=== PATIENT | male | born 1975 | race Caucasian/White ===

== ENCOUNTER → 2016-07-09 | Outpatient (CLI) | payer MEDICARE, OTHER ==
--- NOTE | 2016-07-10 06:54 | CONS ---
DATE OF CONSULTATION: CONSULTATION/NEW PATIENT EVALUATION A 40-year-old gentleman who has been evaluated in the sleep center for obstructive sleep apnea-hypopnea syndrome. HISTORY OF PRESENT ILLNESS/SLEEP-WAKE EVALUATION: Patient has been diagnosed with obstructive sleep apnea hypopnea syndrome about 4 years ago. Since that time, he is on treatment on CPAP. He continued using his CPAP equipment every night for the whole night. Recently according to the patient, he developed snoring while on treatment with CPAP and he feels more tired and sleepy during the day. SLEEP SCHEDULE: His sleep schedule is now from 10 p.m. to 7 a.m. on working days and from around 11 p.m. to 8 a.m. on weekends. FALLING ASLEEP: No problem with falling asleep. No TV in bedroom. DURING SLEEP: He usually sleeps on the back position. No history of hypnagogic hallucinations, sleep paralysis. DURING THE DAY/WAKE STATE: In the morning, patient wakes up tired. [place] Sleepiness Scale is although only 4. I checked patient's CPAP unit. CPAP pressure of 8 cm of water. Patient is using equipment 30 out of 30 nights for more than 4 hours. Subsequently 100% compliance with treatment. PAST MEDICAL HISTORY: Positive for depression, pulmonary embolism in 2014, back problems. MEDICATIONS: Clozaril, Lexapro, Eliquis, multivitamins. SOCIAL HISTORY: Positive for smoking for about 10 years 1 pack a day in the past; quit in 2010. Alcohol quit in 2006. FAMILY HISTORY: Sleep apnea, snoring, headaches, cancer, mental illness. REVIEW OF SYSTEMS: Snoring while on CPAP, some sleepiness during the day. No fevers. No double vision. No recent chest pain. No shortness of breath. No abdominal pain. No bleeding episodes. No blood in urine. No seizure episodes. PHYSICAL EXAMINATION: During physical exam, a 40-year-old gentleman without distress. VITAL SIGNS: BP 126/75, HR 90, RR 18, height 71, weight 298.8, BMI 41.5, temperature 98.4, oxygen saturation at room air 94%. HEENT: PERRLA, EOMI. Oropharynx extremely low position of soft palate, restriction of nasal breathing, very significant on the right side. NECK: Supple. No JVD. Thyroid is not palpable. LUNGS: Clear to percussion and to auscultation. Good air exchange. No wheezing or rhonchi. HEART: S1, S2 regular. No murmurs, gallops or rubs. ABDOMEN: Obese. EXTREMITIES: No clubbing or cyanosis. HACK SAW OPERATOR: Awake, alert, and oriented x3. Cranial nerves 2 to 7 intact. There is no fasciculation or atrophy noted. No focal deficits observed. IMPRESSION: 1. Obstructive sleep apnea-hypopnea syndrome. Recently patient developed snoring while on treatment with CPAP and feels sleepy in the morning after awakenings. 2. Obesity, body mass index 41.5. 3. History of pulmonary embolism in 2015. 4. Depression. 5. Back problems. PLAN: 1. We will repeat CPAP titration for re-evaluation of effective CPAP pressure at the present time, presently CPAP pressure is 8. 2. Aggressive losing weight program. 3. Sleep hygiene with regular time in bed for at least 8 hours. 4. No driving if feeling any sleepiness. 5. Continued treatment with CPAP every night for the whole night. Prescription for all necessary CPAP supplies. Thank you very much for allowing me to participate in the management of your patient. Sincerely, Lew Jordan MD, PhD, FAASM. Diplomat of [employer], Sleep Medicine Board by [employer] [facility] [place]
== END | disposition home or self-care (01) ==
LOC: SLEEP 15:47
PROVIDERS: ATTEND Internal Medicine
DX: G47.33 Obstructive sleep apnea (adult) (pediatric) (principal); E66.9 Obesity, unspecified; F32.9 Major depressive disorder, single episode, unspecified; Z68.41 Body mass index [BMI] 40.0-44.9, adult; Z86.711 Personal history of pulmonary embolism; Z79.01 Long term (current) use of anticoagulants
CPT/HCPCS: 99211

== ENCOUNTER 2018-02-23 21:43 | Inpatient (IN) | payer MEDICARE, OTHER ==
[2018-02-23] MEDS ORDERED: IPRATROPIUM-ALBUTEROL 3 ML NEB INHALATION STA (21:56)
[2018-02-23] MEDS ORDERED: DEXAMETHASONE SOD PHOSPHATE 10 MG/ML 1 ML VIAL IV STA (21:56)
--- NOTE | 2018-02-23 22:01 | ED ---
General Adult HPI - General Chief complaint: Shortness of Breath Stated complaint: Diff Breathing Time Seen by Provider: 02/23/18 21:50 Source: patient, RN notes reviewed, old records reviewed Mode of arrival: ambulatory Limitations: no limitations - History of Present Illness Initial comments: 42-year-old male history of asthma and pulmonary embolism presents with chief complaint of dyspnea. Patient states he had been out of his Eliquis, for the past 3 days. He did refill his prescription and took one dose prior to arrival. He does report that he's had worsening cough which is nonproductive. He also reports subjective fever and chills. Denies lower extremity swelling or calf tenderness. Denies nausea vomiting or diarrhea. He does report some central chest tightness. This is nonradiating. He is a current smoker. - Related Data Home Medications Medication Instructions Recorded Confirmed cloZAPine [Clozaril] 100 mg PO HS 04/29/14 02/23/18 Apixaban [Eliquis] 5 mg PO BID 02/23/18 02/23/18 Budesonide [Pulmicort Flexhaler] 2 puff INHALATION RT-BID 02/23/18 02/23/18 DULoxetine HCL [Cymbalta] 60 mg PO DAILY 02/23/18 02/23/18 Montelukast [Singulair] 10 mg PO HS 02/23/18 02/23/18 Allergies Allergy/AdvReac Type Severity Reaction Status Date / Time venlafaxine HCl Allergy Unknown Verified 02/23/18 21:50 [From Effexor] Review of Systems ROS Statement: Those systems with pertinent positive or pertinent negative responses have been documented in the HPI. ROS Other: All systems not noted in ROS Statement are negative. Past Medical History Past Medical History: Pulmonary Embolus (PE), Sleep Apnea/CPAP/BIPAP Additional Past Medical History / Comment(s): sleep apnea, bilateral PE History of Any Multi-Drug Resistant Organisms: None Reported Past Surgical History: No Surgical Hx Reported Past Anesthesia/Blood Transfusion Reactions: No Reported Reaction Past Psychological History: Schizophrenia Smoking Status: Light tobacco smoker Past Alcohol Use History: None Reported Past Drug Use History: Cocaine, IV Drug Use General Exam Limitations: no limitations General appearance: alert, in no apparent distress Head exam: Present: atraumatic, normocephalic Eye exam: Present: normal appearance, PERRL, EOMI ENT exam: Present: normal exam Neck exam: Present: normal inspection. Absent: tenderness Respiratory exam: Present: decreased breath sounds, prolonged expiratory. Absent: respiratory distress Cardiovascular Exam: Present: normal rhythm, tachycardia GI/Abdominal exam: Present: soft. Absent: distended, tenderness, guarding Extremities exam: Present: normal inspection, normal capillary refill. Absent: pedal edema Neurological exam: Present: alert, oriented X3, CN II-XII intact. Absent: motor sensory deficit Psychiatric exam: Present: normal affect, normal mood Skin exam: Present: warm, dry, intact. Absent: cyanosis, diaphoretic Course Vital Signs 02/23/18 02/23/18 02/23/18 21:46 22:35 22:43 Temperature 99.7 F H Pulse Rate 129 H 122 H 119 H Respiratory 18 14 16 Rate Blood Pressure 121/73 O2 Sat by Pulse 93 L Oximetry 02/23/18 23:00 Temperature Pulse Rate 114 H Respiratory 18 Rate Blood Pressure 115/53 O2 Sat by Pulse 97 Oximetry EKG Findings - EKG Comments: EKG Findings:: EKG: Sinus tachycardia, rate of 123, [place] interval 164, QRS duration 104, QTC 420, no ST segment elevation Medical Decision Making - Medical Decision Making 41-year-old male history of asthma and pulmonary embolism presents with cough and dyspnea. Patient is tachycardic, hyperpyrexic, tachypneic and hypoxic on initial evaluation. There is concern patient may have recurrent pulmonary embolism as he has been off of his anticoagulation for several days. CT angiography is obtained is negative for acute pulmonary and wasn't, there is adenopathy within the mediastinum as well as concern for pulmonary edema. This is also visualized on chest x-ray which is consistent with either interstitial pneumonia versus pulmonary edema. Laboratory testing reveals elevated white blood cell count 16.5, stable hemoglobin, troponin and BMP are negative. Official the x-ray findings are more consistent with pneumonia and infectious process rather than congestive heart failure. Patient has mild elevated lactic acid 3.0. He will be admitted for treatment of community-acquired pneumonia and reactive airway disease. Given the concern for pulmonary edema, echo will be obtained. IV hydration will be given however at a rate of 75 mL/h. patient started on ceftriaxone and azithromycin. He will be continued on IV steroids. - Lab Data Result diagrams: 02/23/18 22:14 02/23/18 22:14 Lab Results 02/23/18 02/23/18 02/23/18 Range/Units 22:14 22:14 22:14 WBC 16.5 H (3.8-10.6) k/uL RBC 5.55 (4.30-5.90) m/uL Hgb 15.4 (13.0-17.5) gm/dL Hct 47.3 (39.0-53.0) % MCV 85.1 (80.0-100.0) fL MCH 27.7 (25.0-35.0) pg MCHC 32.6 (31.0-37.0) g/dL RDW 15.0 (11.5-15.5) % Plt Count 290 (150-450) k/uL Neutrophils % (Manual) 88 % Band Neutrophils % 2 % Lymphocytes % (Manual) 7 % Monocytes % (Manual) 3 % Neutrophils # (Manual) 14.80 H (1.3-7.7) k/uL Lymphocytes # (Manual) 1.16 (1.0-4.8) k/uL Monocytes # (Manual) 0.50 (0-1.0) k/uL Nucleated RBCs 0 (0-0) /100 WBC Manual Slide Review Performed PT (9.0-12.0) sec INR (<1.2) APTT (22.0-30.0) sec Sodium 139 (137-145) mmol/L Potassium 4.3 (3.5-5.1) mmol/L Chloride 105 (98-107) mmol/L Carbon Dioxide 22 (22-30) mmol/L Anion Gap 12 mmol/L BUN 16 (9-20) mg/dL Creatinine 0.96 (0.66-1.25) mg/dL Est GFR (CKD-EPI)AfAm >90 (>60 ml/min/1.73 sqM) Est GFR (CKD-EPI)NonAf >90 (>60 ml/min/1.73 sqM) Glucose 146 H (74-99) mg/dL Plasma Lactic Acid Aneesh (0.7-2.0) mmol/L Calcium 9.7 (8.4-10.2) mg/dL Magnesium 1.9 (1.6-2.3) mg/dL Total Bilirubin 1.4 H (0.2-1.3) mg/dL AST 30 (17-59) U/L ALT 51 (21-72) U/L Alkaline Phosphatase 50 (38-126) U/L Total Creatine Kinase 146 (55-170) U/L CK-MB (CK-2) 0.3 (0.0-2.4) ng/mL CK-MB (CK-2) Rel Index 0.2 Troponin I <0.012 (0.000-0.034) ng/mL NT-Pro-B Natriuret Pep pg/mL Total Protein 7.4 (6.3-8.2) g/dL Albumin 4.3 (3.5-5.0) g/dL 02/23/18 02/23/18 02/23/18 Range/Units 22:14 22:14 22:14 WBC (3.8-10.6) k/uL RBC (4.30-5.90) m/uL Hgb (13.0-17.5) gm/dL Hct (39.0-53.0) % MCV (80.0-100.0) fL MCH (25.0-35.0) pg MCHC (31.0-37.0) g/dL RDW (11.5-15.5) % Plt Count (150-450) k/uL Neutrophils % (Manual) % Band Neutrophils % % Lymphocytes % (Manual) % Monocytes % (Manual) % Neutrophils # (Manual) (1.3-7.7) k/uL Lymphocytes # (Manual) (1.0-4.8) k/uL Monocytes # (Manual) (0-1.0) k/uL Nucleated RBCs (0-0) /100 WBC Manual Slide Review PT 11.2 (9.0-12.0) sec INR 1.2 H (<1.2) APTT 25.8 (22.0-30.0) sec Sodium (137-145) mmol/L Potassium (3.5-5.1) mmol/L Chloride (98-107) mmol/L Carbon Dioxide (22-30) mmol/L Anion Gap mmol/L BUN (9-20) mg/dL Creatinine (0.66-1.25) mg/dL Est GFR (CKD-EPI)AfAm (>60 ml/min/1.73 sqM) Est GFR (CKD-EPI)NonAf (>60 ml/min/1.73 sqM) Glucose (74-99) mg/dL Plasma Lactic Acid Aneesh 3.0 H* (0.7-2.0) mmol/L Calcium (8.4-10.2) mg/dL Magnesium (1.6-2.3) mg/dL Total Bilirubin (0.2-1.3) mg/dL AST (17-59) U/L ALT (21-72) U/L Alkaline Phosphatase (38-126) U/L Total Creatine Kinase (55-170) U/L CK-MB (CK-2) (0.0-2.4) ng/mL CK-MB (CK-2) Rel Index Troponin I (0.000-0.034) ng/mL NT-Pro-B Natriuret Pep <11 pg/mL Total Protein (6.3-8.2) g/dL Albumin (3.5-5.0) g/dL Disposition Clinical Impression: Community acquired pneumonia, Asthma with exacerbation Disposition: ADMITTED IP TO THIS [facility] Condition: Stable Is patient prescribed a controlled substance at d/c from ED?: No Referrals: Moise Christensen MD [Primary Care Provider] - 1-2 days Decision to Admit Reason: Admit from EC Decision Date: 02/23/18 Decision Time: 23:44
[2018-02-23 22:31] LABS: HCT 47.3 % (39.0-53.0); HGB 15.4 gm/dL (13.0-17.5); MCH 27.7 pg (25.0-35.0); MCHC 32.6 g/dL (31.0-37.0); MCV 85.1 fL (80.0-100.0); Mean Platelet Volume 6.3; Platelet Count 290 k/uL (150-450); RBC 5.55 m/uL (4.30-5.90); WBC 16.5 k/uL (3.8-10.6)
[2018-02-23 22:43] LABS: ALT 51 U/L (21-72); AST 30 U/L (17-59); Albumin 4.3 g/dL (3.5-5.0); Alkaline Phosphatase 50 U/L (38-126); Anion Gap 12 mmol/L; Blood Urea Nitrogen 16 mg/dL (9-20); Calcium 9.7 mg/dL (8.4-10.2); Carbon Dioxide 22 mmol/L (22-30); Chloride 105 mmol/L (98-107); Glucose 146 mg/dL (74-99); INR 1.2 (<1.2); Magnesium 1.9 mg/dL (1.6-2.3); Partial Thromboplastin Time 25.8 sec (22.0-30.0); Potassium 4.3 mmol/L (3.5-5.1); Prothrombin Time 11.2 sec (9.0-12.0); Sodium 139 mmol/L (137-145); Total Bilirubin 1.4 mg/dL (0.2-1.3); Total Protein 7.4 g/dL (6.3-8.2)
[2018-02-23 22:44] LABS: Creatine Kinase 146 U/L (55-170)
--- NOTE | 2018-02-23 22:49 | XR ---
EXAMINATION TYPE: XR chest 1V portable DATE OF EXAM: 02/23/2018 COMPARISON: 10/03/2014 HISTORY: Difficulty breathing TECHNIQUE: Single frontal view of the chest is obtained. FINDINGS: Heart and mediastinum are normal. There is coarsening of the lung markings. There is no pl eural effusion. Bony thorax is intact. There are chest leads. IMPRESSION: There is new pulmonary interstitial edema compared to old exam. This could be acute inte rstitial pneumonia or congestive heart failure.
[2018-02-23 22:52] LABS: Band Neutrophils % 2 %; Lymphocytes # (M) 1.16 k/uL (1.0-4.8); Neutrophils % (M) 88 %; Nucleated Red Blood Cells 0 /100 WBC (0-0); Total Cells Counted 100
[2018-02-23 22:57] LABS: Creatine Kinase MB 0.3 ng/mL (0.0-2.4); Troponin I <0.012 ng/mL (0.000-0.034)
--- NOTE | 2018-02-23 23:08 | CT ---
EXAMINATION TYPE: CT angio chest DATE OF EXAM: 02/23/2018 11:00 PM COMPARISON: 11/22/2014 HISTORY: SOB, hx of bilateral PE CT DLP: 836.7 mGycm Automated exposure control for dose reduction was used. CONTRAST: CTA scan of the thorax is performed with IV Contrast, patient injected with 77 mL of Isovue 370, pulm onary embolism protocol. There are 3-D post processed images.. FINDINGS: There is diffuse pulmonary interstitial and alveolar edema. There are enlarged mediastinal and paratr acheal lymph nodes that measure up to 2 cm. Heart size is normal. There is no pericardial effusion. I see no filling defects in the pulmonary arteries. Thoracic aorta is intact without evidence of aneu rysm or dissection. There is no pleural effusion. Upper abdominal soft tissues are unremarkable. The bony thorax is intact. IMPRESSION: NO EVIDENCE OF PULMONARY EMBOLISM. THERE IS MEDIASTINAL ADENOPATHY THAT IS INCREASED SLIGHTLY COMPARE D TO OLD CT SCAN. THERE IS MODERATE DIFFUSE PULMONARY EDEMA. THIS IS NEW COMPARED TO OLD EXAM.
[2018-02-23] MEDS ORDERED: AZITHROMYCIN 500 MG in SODIUM CHLORIDE 0.9% 250 ML IVPB STA (23:10)
[2018-02-23] MEDS ORDERED: SODIUM CHLORIDE 0.9% 500 ML 500 ML IV ONE (23:14)
[2018-02-23] MEDS ORDERED: IPRATROPIUM-ALBUTEROL 3 ML NEB INHALATION PRN (23:35)
[2018-02-24] MEDS: SODIUM CHLORIDE 0.9% 1,000 ML IV SCH ×3 (00:01→23:28)
[2018-02-24] MEDS: methylPREDNISolone SOD SUCCI 125 MG/2 ML VIAL IV SCH ×5 (01:41→23:28)
[2018-02-24] MEDS: cloZAPine 100 MG TAB PO SCH ×2 (02:39→22:40)
[2018-02-24] MEDS: IPRATROPIUM-ALBUTEROL 3 ML NEB INHALATION SCH ×4 (08:23→20:42)
[2018-02-24] MEDS: DULoxetine HCL 60 MG CAPSULE.DR PO SCH (08:48)
[2018-02-24] MEDS: APIXABAN 5 MG TAB PO SCH ×2 (08:48→20:11)
[2018-02-24] MEDS: FUROSEMIDE 10 MG/ML 4 ML VIAL IV SCH ×2 (15:53→20:11)
[2018-02-24] MEDS: POTASSIUM CHLORIDE ER 20 MEQ TAB.ER PO SCH (15:54)
[2018-02-24] MEDS: NICOTINE 14MG/24HR PATCH TRANSDERM SCH (15:54)
--- NOTE | 2018-02-24 19:21 | P.HPIM ---
History of Present Illness H&P Date: 02/24/18 Chief Complaint: Shortness of breath and fever cough This is a 42-year-old pleasant gentleman patient of Dr. Christensen and Dr. Lanre Perkins. He came in with shortness of breath of approximately 1-2 days duration, dry cough, fever and chills, patient has a nebulizer which is not helping, patient sees Dr. Lanre Perkins for her pulmonary embolism and asthma for which she is not on Xolair shots. Patient has been out of his Eliquis for the past 3 days , patient denies any hemoptysis or hypoxemia, and was subsequently seen emergency room. In the emergency room, imaging studies shows pneumonia with infectious processes rather than CHF that was noted, mild lactic acidosis, treatment would be provided for Commit acquired pneumonia IV form, IV steroids, and nebulized treatments. Consult with Dr. Lanre Perkins, Nocardia gram to be done for pulmonary edema, Lasix to be given, Rocephin and Zithromax Review of Systems Constitutional: Reports as per HPI, Reports anorexia, Reports chills, Denies chronic headaches, Denies chronic pain, Denies daytime sleepiness, Denies fatigue, Denies fever, Denies lethargy, Denies malaise, Denies night sweats, Denies poor appetite, Denies sweats, Denies weakness, Denies weight gain, Denies weight loss Ears, nose, mouth and throat: Reports as per HPI Cardiovascular: Reports as per HPI, Denies chest pain, Denies claudication, Denies decreased exercise tolerance, Denies dyspnea on exertion, Denies edema, Denies high blood pressure, Denies irregular heart beat, Denies leg edema, Denies lightheadedness, Denies orthopnea, Denies palpitations, Denies paroxysmal nocturnal dyspnea, Denies phlebitis, Denies rapid heart beat, Denies shortness of breath, Denies syncope Respiratory: Reports as per HPI, Reports cough, Reports dyspnea, Reports sleep apnea Gastrointestinal: Reports as per HPI, Denies abdominal pain, Denies belching, Denies bloating, Denies BRBPR, Denies change in bowel habits, Denies coffee ground emesis, Denies constipation, Denies diarrhea, Denies dyspepsia, Denies early satiety, Denies excessive gas, Denies heartburn, Denies hematemesis, Denies hematochezia, Denies indigestion, Denies jaundice, Denies lactose intolerance, Denies loss of appetite, Denies melena, Denies nausea, Denies vomiting Genitourinary: Reports as per HPI, Denies decreased libido, Denies difficulties fathering child, Denies discharge, Denies dysuria, Denies erectile dysfunction, Denies flank pain, Denies genital pain, Denies genital sores, Denies hematuria, Denies impotence, Denies incontinence, Denies kidney stones, Denies nocturia, Denies polyuria, Denies testicular lump, Denies testicular pain, Denies urinary frequency, Denies urinary hesitancy, Denies urinary retention Musculoskeletal: Reports as per HPI, Denies arm numbness/tingling, Denies atrophy, Denies fractures, Denies frequent falls, Denies gait dysfunction, Denies hot joints, Denies leg numbness/tingling, Denies limitation of motion, Denies loss of height, Denies low back pain, Denies morning stiffness, Denies muscle cramps, Denies muscle weakness, Denies myalgias, Denies neck pain, Denies neck stiffness, Denies prior amputations, Denies redness of joints, Denies shooting arm pain, Denies shooting leg pain Integumentary: Reports as per HPI, Denies acne, Denies boils, Denies brittle nails, Denies change in hair/nails, Denies color changes, Denies darkening of skin, Denies depigmentation, Denies dryness, Denies foot/leg ulcers, Denies growths, Denies hirsutism, Denies lesions, Denies onychomycosis, Denies pruritus , Denies rash, Denies sores, Denies striae, Denies unusual bruising, Denies wounds Neurological: Reports as per HPI, Denies aphasia, Denies ataxia, Denies balance difficulties, Denies burning pain, Denies change in mentation, Denies change in smell/taste, Denies change in speech, Denies confusion, Denies convulsions, Denies double vision, Denies gait dysfunction, Denies head injury, Denies headaches, Denies hearing difficulties, Denies lack of coordination, Denies loss of vision, Denies memory loss, Denies migraines, Denies motor disturbance, Denies numbness, Denies paralysis, Denies paresthesias, Denies seizures, Denies sensory deficit, Denies spasticity, Denies syncope, Denies tic, Denies tingling , Denies transient paralysis, Denies tremors, Denies vertigo, Denies weakness, Denies visual changes Psychiatric: Reports as per HPI, Denies anhedonia, Denies anxiety, Denies anxiety attacks, Denies change in appetite, Denies change in libido, Denies change in sleep habits, Denies confusion, Denies depression, Denies difficulty concentrating, Denies disorientation, Denies hallucinations, Denies hopelessness , Denies hypersomnia, Denies insomnia, Denies irritability, Denies memory loss, Denies mood swings, Denies paranoia, Denies sadness/tearfulness, Denies sleep disturbances, Denies suicidal ideation Endocrine: Reports as per HPI, Denies cold intolerance, Denies deepening of the voice, Denies excessive sweating, Denies excessive thirst, Denies fatigue, Denies flushing, Denies heat intolerance, Denies high blood sugars, Denies increase in ring/shoe/hat size, Denies low blood sugars, Denies nocturia, Denies palpitations, Denies polydipsia, Denies polyphagia, Denies polyuria, Denies proptosis, Denies recent glucocorticoid use, Denies thyroid mass, Denies weight change Hematologic/Lymphatic: Reports as per HPI, Denies easy bleeding, Denies easy bruising, Denies lymphadenopathy, Denies lymphedema, Denies thrombophilia Allergic/Immunologic: Reports as per HPI, Reports wheezing Past Medical History Past Medical History: Pulmonary Embolus (PE), Sleep Apnea/CPAP/BIPAP Additional Past Medical History / Comment(s): Sleep apnea- CPAP, bilateral PE 2015 and takes Eliquid for this. History of Any Multi-Drug Resistant Organisms: None Reported Past Surgical History: No Surgical Hx Reported Past Anesthesia/Blood Transfusion Reactions: No Reported Reaction Past Psychological History: Schizophrenia Smoking Status: Current some day smoker Past Alcohol Use History: None Reported Additional Past Alcohol Use History / Comment(s): Smoke cigars occassionally and vape daily. Past Drug Use History: Cocaine, IV Drug Use Additional Drug Use History / Comment(s): Patient states former IV drug use 12 years ago. - Past Family History Mother Family Medical History: No Reported History Father History Unknown: Yes Family Medical History: Cancer Additional Family Medical History / Comment(s): History of skin cancer. Sister(s) Family Medical History: No Reported History Medications and Allergies Home Medications Medication Instructions Recorded Confirmed Type cloZAPine [Clozaril] 100 mg PO HS 04/29/14 02/24/18 History Apixaban [Eliquis] 5 mg PO BID 02/23/18 02/24/18 History Budesonide [Pulmicort Flexhaler] 2 puff INHALATION RT-BID 02/23/18 02/24/18 History DULoxetine HCL [Cymbalta] 60 mg PO DAILY 02/23/18 02/24/18 History Montelukast [Singulair] 10 mg PO HS 02/23/18 02/24/18 History Allergies Allergy/AdvReac Type Severity Reaction Status Date / Time venlafaxine HCl Allergy Nausea & Verified 02/24/18 00:58 [From Effexor] Vomiting Physical Exam Vitals: Vital Signs Temp Pulse Pulse Resp BP BP Pulse Ox 02/24/18 12:40 97.5 F L 93 17 136/72 94 L 02/24/18 11:28 92 02/24/18 11:17 88 02/24/18 05:34 98.2 F 83 16 122/69 92 L 02/24/18 00:25 97.9 F 110 H 18 115/67 95 02/24/18 00:05 98.0 F 110 H 18 109/79 96 02/23/18 23:00 114 H 18 115/53 97 02/23/18 22:43 119 H 16 02/23/18 22:35 122 H 14 02/23/18 21:46 99.7 F H 129 H 18 121/73 93 L Intake and Output 02/23/18 02/24/18 02/24/18 22:59 06:59 14:59 Intake Total 1530 600 Balance 1530 600 Intake: IV 600 Sodium Chloride 0.9% 1, 600 000 ml @ 75 mls/hr IV . [id number] [facility] Rx#:[id number] Intake, IV Titration 450 Amount Sodium Chloride 0.9% 1, 450 000 ml @ 75 mls/hr IV . [id number] [facility] Rx#:[id number] Oral 1080 Other: Voiding Method Toilet Toilet # Voids 2 Weight 132.903 kg - Constitutional General appearance: cooperative, no acute distress, obese - EENT Eyes: EOMI, PERRLA, dentition normal, normal appearance ENT: NA/AT, normal oropharynx - Neck Neck: no lymphadenopathy, normal ROM, no other, no rigidity, no stridor, no thyromegaly - Respiratory Respiratory: bilateral: CTA, negative: diminished, dullness - Cardiovascular Rhythm: regular Heart sounds: normal: S1, S2 Abnormal Heart Sounds: no systolic murmur, no diastolic murmur, no rub, no S3 Gallop, no S4 Gallop, no click, no other - Gastrointestinal General gastrointestinal: no absent bowel sounds, no decreased bowel sounds, no distended, no hepatomegaly, no hyperactive bowel sounds, normal bowel sounds, no organomegaly, no rigid, no scaphoid, soft, no splenomegaly, no tenderness, no umbilical hernia, no ventral hernia - Integumentary Integumentary: no calor, no cellulitis, no cyanotic, no decreased turgor, no flushed, no jaundiced, normal, normal turgor, no pale, no rash, no ulcer - Neurologic Neurologic: CNII-XII intact (CPAP at bedside) - Musculoskeletal Musculoskeletal: gait normal, strength equal bilaterally - Psychiatric Psychiatric: A&O x's 3, appropriate affect, intact judgment & insight Results CBC & Chem 7: 02/23/18 22:14 02/23/18 22:14 Labs: Abnormal Lab Results - Last 24 Hours (Table) 02/23/18 02/23/18 02/23/18 Range/Units 22:14 22:14 22:14 WBC 16.5 H (3.8-10.6) k/uL Neutrophils # (Manual) 14.80 H (1.3-7.7) k/uL INR 1.2 H (<1.2) Glucose 146 H (74-99) mg/dL Plasma Lactic Acid Aneesh (0.7-2.0) mmol/L Total Bilirubin 1.4 H (0.2-1.3) mg/dL 02/23/18 02/24/18 Range/Units 22:14 03:13 WBC (3.8-10.6) k/uL Neutrophils # (Manual) (1.3-7.7) k/uL INR (<1.2) Glucose (74-99) mg/dL Plasma Lactic Acid Aneesh 3.0 H* 2.1 H* (0.7-2.0) mmol/L Total Bilirubin (0.2-1.3) mg/dL Laboratory Results WBC 16.5 k/uL (3.8-10.6) H 02/23/18 22:14 RBC 5.55 m/uL (4.30-5.90) 02/23/18 22:14 Hgb 15.4 gm/dL (13.0-17.5) 02/23/18 22:14 Hct 47.3 % (39.0-53.0) 02/23/18 22:14 MCV 85.1 fL (80.0-100.0) 02/23/18 22:14 MCH 27.7 pg (25.0-35.0) 02/23/18 22:14 MCHC 32.6 g/dL (31.0-37.0) 02/23/18 22:14 RDW 15.0 % (11.5-15.5) 02/23/18 22:14 Plt Count 290 k/uL (150-450) 02/23/18 22:14 Neutrophils % (Manual) 88 % 02/23/18 22:14 Band Neutrophils % 2 % 02/23/18 22:14 Lymphocytes % (Manual) 7 % 02/23/18 22:14 Monocytes % (Manual) 3 % 02/23/18 22:14 Neutrophils # (Manual) 14.80 k/uL (1.3-7.7) H 02/23/18 22:14 Lymphocytes # (Manual) 1.16 k/uL (1.0-4.8) 02/23/18 22:14 Monocytes # (Manual) 0.50 k/uL (0-1.0) 02/23/18 22:14 Nucleated RBCs 0 /100 WBC (0-0) 02/23/18 22:14 Manual Slide Review Performed 02/23/18 22:14 PT 11.2 sec (9.0-12.0) 02/23/18 22:14 INR 1.2 (<1.2) H 02/23/18 22:14 APTT 25.8 sec (22.0-30.0) 11/21/18 22:14 Sodium 139 mmol/L (137-145) 02/23/18 22:14 Potassium 4.3 mmol/L (3.5-5.1) 02/23/18 22:14 Chloride 105 mmol/L (98-107) 02/23/18 22:14 Carbon Dioxide 22 mmol/L (22-30) 02/23/18 22:14 Anion Gap 12 mmol/L 02/23/18 22:14 BUN 16 mg/dL (9-20) 02/23/18 22:14 Creatinine 0.96 mg/dL (0.66-1.25) 02/23/18 22:14 Est GFR (CKD-EPI)AfAm >90 (>60 ml/min/1.73 sqM) 02/23/18 22:14 Est GFR (CKD-EPI)NonAf >90 (>60 ml/min/1.73 sqM) 02/23/18 22:14 Glucose 146 mg/dL (74-99) H 02/23/18 22:14 Lactic Ac Sepsis Rflx Y 02/23/18 23:14 Plasma Lactic Acid Aneesh 2.1 mmol/L (0.7-2.0) H* 02/24/18 03:13 Calcium 9.7 mg/dL (8.4-10.2) 02/23/18 22:14 Magnesium 1.9 mg/dL (1.6-2.3) 02/23/18 22:14 Total Bilirubin 1.4 mg/dL (0.2-1.3) H 02/23/18 22:14 AST 30 U/L (17-59) 02/23/18 22:14 ALT 51 U/L (21-72) 02/23/18 22:14 Alkaline Phosphatase 50 U/L (38-126) 02/23/18 22:14 Total Creatine Kinase 146 U/L (55-170) 02/23/18 22:14 CK-MB (CK-2) 0.3 ng/mL (0.0-2.4) 02/23/18 22:14 CK-MB (CK-2) Rel Index 0.2 02/23/18 22:14 Troponin I <0.012 ng/mL (0.000-0.034) 02/23/18 22:14 NT-Pro-B Natriuret Pep <11 pg/mL 02/23/18 22:14 Total Protein 7.4 g/dL (6.3-8.2) 02/23/18 22:14 Albumin 4.3 g/dL (3.5-5.0) 02/23/18 22:14 Influenza Type A RNA Not Detected (Not Detectd) 02/24/18 00:07 Influenza Type B (PCR) Not Detected (Not Detectd) 02/24/18 00:07 Thrombosis Risk Factor Assmnt - DVT/VTE Prophylaxis DVT/VTE Prophylaxis: Pharmacologic Prophylaxis ordered - Choose All That Apply Each Factor Represents 1 point: Age 41-60 years, Obesity (BMI >25) Each Risk Factor Represents 3 Points: History of DVT/PE Other congenital or acquired thrombophilia - If yes, enter type in comment: No Thrombosis Risk Factor Assessment Total Risk Factor Score: 5 Thrombosis Risk Factor Assessment Level: High Risk Assessment and Plan Plan: 1. Coreg acquired pneumonia, asthma exacerbation. Presenting with dyspnea on exertion, known history of pulmonary emboli, with chronic anticoagulation. Patient will be treated with asked way using Rocephin and Zithromax, IV steroids for the asthma, nebulized albuterol 8 event. Patient most likely would not be able to provide any sputum cultures at this time secondary to the dry cough, monitor for any decompensation, 2. Asthma exacerbation, not requiring any Xolair from pulmonary, albuterol and 8 event, Singulair, Pulmicort 0.5 mg twice a day nebulized solution 3. Obstructive sleep apnea on CPAP machine for which patient is using at bedside 4. Acute pulmonary edema, Lasix 40 mg every 12 hours, echocardiogram to be performed, potassium 10 MG Q [employer] 5 Long-term anticoagulation using Eliquis 6 History of recurrent pulmonary emboli for which she is advised to comply with Eliquis 5 mg twice a day 7 Lactic acidosis which is improving, most likely secondary to pneumonia 8 Mood disorder on Cymbalta Clozaril no changes made 9 Current tobacco use, patient was offered nicotine patches 14 g which was initiated DVT prophylaxis next GI prophylaxis Discharge planning home in approximately 24-48 hours
[2018-02-24] MEDS: FAMOTIDINE 20 MG TAB PO SCH (20:11)
[2018-02-24] MEDS: MONTELUKAST 10 MG TAB PO SCH (20:11)
[2018-02-24] MEDS: BUDESONIDE 0.5 MG/2 ML NEBU INHALATION SCH (20:41)
[2018-02-24] MEDS ORDERED: AZITHROMYCIN 500 MG in SODIUM CHLORIDE 0.9% 250 ML IVPB SCH (23:00)
[2018-02-25] MEDS: methylPREDNISolone SOD SUCCI 125 MG/2 ML VIAL IV SCH ×3 (05:09→18:01)
[2018-02-25] MEDS: IPRATROPIUM-ALBUTEROL 3 ML NEB INHALATION SCH ×4 (08:14→19:46)
[2018-02-25] MEDS: BUDESONIDE 0.5 MG/2 ML NEBU INHALATION SCH ×2 (08:14→19:46)
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
[2018-02-25] MEDS: FUROSEMIDE 10 MG/ML 4 ML VIAL IV SCH (09:44)
[2018-02-25] MEDS: APIXABAN 5 MG TAB PO SCH ×2 (09:44→20:55)
[2018-02-25] MEDS: FAMOTIDINE 20 MG TAB PO SCH ×2 (09:44→20:55)
[2018-02-25] MEDS: DULoxetine HCL 60 MG CAPSULE.DR PO SCH (09:44)
[2018-02-25] MEDS: POTASSIUM CHLORIDE ER 20 MEQ TAB.ER PO SCH (09:45)
[2018-02-25] MEDS: NICOTINE 14MG/24HR PATCH TRANSDERM SCH (09:45)
[2018-02-25 12:26] LABS: Glucose,Whole Blood 236 mg/dL (75-99)
[2018-02-25] MEDS: INSULIN ASPART 100 UNIT/ML 1 ML 10 ML VIAL SQ SCH ×3 (12:37→20:55)
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
--- NOTE | 2018-02-25 13:46 | CDI ---
Last Revision, March 2017 Documentation Clarification Form Date: 02/25/18 From: Rosetta Knowles RN Admit Date: 02/23/2018 11:44:00 PM Patient Name: Rolando Canas Visit Number: [id number] ATTENTION: The Clinical Documentation Specialists (CDI) and [facility] Coding Staff appreciate your assistance in clarifying documentation. Please respond to the clarification below the line at the bottom and electronically sign. The CDI & [facility] Coding staff will review the response and follow-up if needed. Please note: Queries are made part of the Legal Health Record. If you have any questions, please contact the author of this message via ITS. Sujit Worthington MD, Asthma is documented in the Ed note as a history, and in your Consult note dated 02/24. Patient presented to ED with shortness of breath. Patient admitted for community acquired pneumonia and asthma with exacerbation Patient history/risk factors: PE, apnea, schizophrenia, smoker, cocaine and IV drug use Clinical Indicators: ED note patients reports some central chest tightness. H&P states "asthma exacerbation" Consult 02/25: Faint wheezing on forced expiration. CXR: new pulmonary interstitial edema, could be acute interstitial pneumonia CHEST CTA: moderate diffuse pulmonary edema Vital Signs on admission: T 99.7, P 129, R 18, 121/73, 93% RA Treatment: Medication: Duoneb, Pulmicort, Solu-Medrol, Singulair In your professional opinion, can you please further specify the following, if known? With: Status asthmaticus Chronic obstructive bronchitis Other, please specify Unable to determine Severity: Mild intermittent Mild persistent Moderate persistent Other, please specify Unable to determine Form or Type: Cough variant Exercise induced bronchospasm Extrinsic allergic Late-onset Mixed Other, please specify Unable to determine MTDD
--- NOTE | 2018-02-25 14:11 | CDI ---
Last Revision, March 2017 Documentation Clarification Form Date: 02/25/18 From: Rosetta Knowles RN Admit Date: 02/23/2018 11:44:00 PM Patient Name: Rolando Canas Visit Number: [id number] ATTENTION: The Clinical Documentation Specialists (CDI) and [facility] Coding Staff appreciate your assistance in clarifying documentation. Please respond to the clarification below the line at the bottom and electronically sign. The CDI & [facility] Coding staff will review the response and follow-up if needed. Please note: Queries are made part of the Legal Health Record. If you have any questions, please contact the author of this message via ITS. Salima Sal MD, Can you please render your opinion on the following documentation? Patient presented with dyspnea, fever and chills. Patient was admitted with Community acquired pneumonia, Asthma with exacerbation. History/Risk Factors: PE, apnea, smoker, cocaine and IV drug use Clinical Indicators: WBC on admission: 16.5 Lactic acid on admission: 3.0. On 02/24: 2.1 Blood cultures: Preliminary no growth after 24 hours Vitals signs on admission: T 99.7, P 129, R 18, 121/73, 93% RA ED notes states Patient was tachycardic, hyperpyrexic, tachypneic and hypoxic on initial evaluation. Treatment: ID Consult: Pulmonary Antibiotics: Azithromycin IVPB, Ceftriaxone IVPB IV Bolus: .9 - 500ml x1 In your professional opinion, please clarify if these findings signify one of the following conditions, whether the condition is POA, and cause, if known: Condition Sepsis ruled in Sepsis ruled out SIRS, without underlying infectious process Other, please specify Unable to determine Present on Admission: Yes No Identify the (suspected) organism SIRS Criteria..2 or more of the following may indicate SIRS: Temperature < 96.8F (36C) or > 101.0F (38.3C) Heart Rate > 90 bpm Respiratory Rate > 20 breaths/min or PaCO2 < 32 mmHg White Blood Cell Count > 12,000 or < 4,000 cells/mm3 or > 10% bands Lactate >2.0 mmol/L (>4.0 is equivalent to septic shock) MTDD
--- NOTE | 2018-02-25 15:20 | P.PN ---
Subjective Progress Note Date: 02/25/18 This is a 42-year-old pleasant gentleman patient of Dr. Christensen and Dr. Lanre Perkins. He came in with shortness of breath of approximately 1-2 days duration, dry cough, fever and chills, patient has a nebulizer which is not helping, patient sees Dr. Lanre Perkins for her pulmonary embolism and asthma for which she is not on Xolair shots. Patient has been out of his Eliquis for the past 3 days , patient denies any hemoptysis or hypoxemia, and was subsequently seen emergency room. In the emergency room, imaging studies shows pneumonia with infectious processes rather than CHF that was noted, mild lactic acidosis, treatment would be provided for Commit acquired pneumonia IV form, IV steroids, and nebulized treatments. Consult with Dr. Lanre Perkins, Nocardia gram to be done for pulmonary edema, Lasix to be given, Rocephin and Zithromax 02/25: Patient continues to have some shortness of breath but a little bit better from yesterday. He has a tight cough. He continues to have some wheezing. Solu-Medrol is at 60 mg every 6 hours and will be maintained. IV fluids will be discontinued and IV Lasix will be switched to oral. Anticipate discharge in the next 24-48 hours pending progress. Patient is followed by Dr. SUKHDEV Perkins. He is afebrile, pulse ox is 93% on room air, heart rate running 90s to low 100s. Plan to start patient on NovoLog scale. Review Of Systems: Constitutional: No fever, no chills, no night sweats. No weight change. No weakness, fatigue or lethargy. No daytime sleepiness. EENT: No headache. No blurred vision or double vision, no loss of vision. No loss of Hearing, no ringing in the ears, no dizziness. No nasal drainage or congestion. No epistaxis. No sore throat. Lungs: Complains of shortness of breath, complains of cough, no sputum production. Complains of wheezing. Cardiovascular: No chest pain, no lower extremity edema. No palpitations. No paroxysmal nocturnal dyspnea. No orthopnea. No lightheadedness or dizziness. No syncopal episodes. Abdominal: No abdominal pain. No nausea, vomiting. No diarrhea. No constipation. No bloody or tarry stools.. No loss of appetite. Genitourinary: No dysuria, increased frequency, urgency. No urinary retention. Musculoskeletal: No myalgias. No muscle weakness, no gait dysfunction, no frequent falls. No back pain. No neck pain. Integumentary: No wounds, no lesions. No rash or pruritus. No unusual bruising. No change in hair or nails. Neurologic: No aphasia. No facial droop. No change in mentation. No head injury. No headache. No paralysis. No paresthesia. Psychiatric: No depression. No anxiety. No mood swings. Endocrine: No abnormal blood sugars. No weight change. No excessive sweating or thirst. No cold intolerance. Objective - Vital Signs Vital signs: Vital Signs Temp 97.6 F 02/25/18 05:00 Pulse 92 02/25/18 08:29 Resp 16 02/25/18 05:00 BP 109/58 02/25/18 05:00 Pulse Ox 94 L 02/25/18 05:00 Intake & Output 02/24/18 02/25/18 02/25/18 18:59 06:59 18:59 Intake Total 600 2240 Balance 600 2240 Intake: IV 600 350 Sodium Chloride 0.9% 1, 600 350 000 ml @ 75 mls/hr IV . [id number] RODRIGO Rx#:[id number] Intake, IV Titration 300 Amount Azithromycin 500 mg In 250 Sodium Chloride 0.9% 250 ml @ 250 mls/hr IVPB ONCE STA Rx#:[id number] cefTRIAXone 1,000 mg In 50 Sodium Chloride 0.9% 50 ml @ 100 mls/hr IVPB Q24H RODRIGO Rx#:[id number] Oral 1590 Other: Voiding Method Toilet Toilet # Voids 2 - Exam General appearance: cooperative, no acute distress, obese - EENT Eyes: EOMI, PERRLA, dentition normal, normal appearance ENT: NA/AT, normal oropharynx - Neck Neck: no lymphadenopathy, normal ROM, no other, no rigidity, no stridor, no thyromegaly - Respiratory Respiratory: bilateral: CTA, negative: diminished, dullness, prolonged expiration. - Cardiovascular Rhythm: regular Heart sounds: normal: S1, S2 Abnormal Heart Sounds: no systolic murmur, no diastolic murmur, no rub, no S3 Gallop, no S4 Gallop, no click, no other - Gastrointestinal General gastrointestinal: no absent bowel sounds, no decreased bowel sounds, no distended, no hepatomegaly, no hyperactive bowel sounds, normal bowel sounds, no organomegaly, no rigid, no scaphoid, soft, no splenomegaly, no tenderness, no umbilical hernia, no ventral hernia - Integumentary Integumentary: no calor, no cellulitis, no cyanotic, no decreased turgor, no flushed, no jaundiced, normal, normal turgor, no pale, no rash, no ulcer - Neurologic Neurologic: CNII-XII intact (CPAP at bedside) - Musculoskeletal Musculoskeletal: gait normal, strength equal bilaterally - Psychiatric Psychiatric: A&O x's 3, appropriate affect, intact judgment & insight - Labs CBC & Chem 7: 02/23/18 22:14 02/23/18 22:14 Labs: Microbiology - Last 24 Hours (Table) 02/23/18 22:14 Blood Culture - Preliminary Blood No Growth after 24 hours Assessment and Plan Plan: 1. Community acquired pneumonia possibly from inhalation injury from exposure to gases from fire extinguisher and confined space, possible hypersensitivity pneumonitis or secondary bacterial infection with asthma exacerbation and presenting with SEPSIS. Consult with Dr. SUKHDEV Perkins appreciated. Continue DuoNeb treatments 4 times daily every 4 hours as needed, azithromycin, ceftriaxone, Solu-Medrol 60 mg IV every 6 hours, Singulair 10 mg at bedtime. 2. Moderate persistent asthma, not requiring Xolair from pulmonary. Continue treatment as in #1 3. Obstructive sleep apnea on CPAP machine for which patient is using at bedside 4. Acute pulmonary edema, IV Lasix changed to oral Lasix 40 mg daily, echocardiogram to be performed. 5. History of pulmonary embolism on Long-term anticoagulation using Eliquis 6. Lactic acidosis secondary to pneumonia, status post fluid resuscitation 7. Recurrent depression. Continue Cymbalta and Clozaril. 8. Current tobacco use, patient was offered nicotine patches 14 g which was initiated. 9. Hyperglycemia most likely secondary to steroids. NovoLog scale before meals and at bedtime. Hemoglobin A1c ordered DVT prophylaxis on eliquis GI prophylaxis on Pepcid Discharge planning home in approximately 24-48 hours Impression and plan of care have been directed as dictated by the signing physician. Sarah Martinez nurse practitioner acting as scribe for signing physician.
[2018-02-25 16:46] LABS: Glucose,Whole Blood 250 mg/dL (75-99)
--- NOTE | 2018-02-25 17:04 | ECHOF ---
Referral Reason:LYNN MEASUREMENTS -------- HEIGHT: 180.3 cm WEIGHT: 132.9 kg BP: 109/58 IVSd: 1.1 cm (0.6 - 1.1) LVIDd: 4.2 cm (3.9 - 5.3) LVPWd: 1.2 cm (0.6 - 1.1) IVSs: 1.4 cm LVIDs: 3.0 cm LVPWs: 1.3 cm LAESV Index (A-L): 20.02 ml/m Ao Diam: 3.1 cm (2.0 - 3.7) AV Cusp: 1.7 cm (1.5 - 2.6) LA Diam: 3.4 cm (2.7 - 3.8) EPSS: 0.4 cm MV E Adriel: 1.06 m/s MV DecT: 286 ms MV A Adriel: 1.15 m/s MV E/A Ratio: 0.93 RAP: 5.00 mmHg RVSP: 17.07 mmHg MV EF SLOPE: 193.58 mm/s (70 - 150) MV EXCURSION: 2.74 cm (> 18.000) FINDINGS -------- Sinus rhythm. This was a technically difficult study with suboptimal views. The left ventricular size is normal. There is mild concentric left ventricular hypertrophy. Overa ll left ventricular systolic function is normal with, an EF between 55 - 60 %. The right ventricle is normal in size and function. Normal LA size by volume 22+/-6 ml/m2. The right atrium was not well visualized. 3 ml of Lumason was utilized for enhancement of images. The aortic valve is trileaflet, and appears structurally normal. No aortic stenosis or regurgitation. The mitral valve is normal. Mild mitral regurgitation is present. Trace tricuspid regurgitation present. Right ventricular systolic pressure is normal at < 35 mmHg. The pulmonic valve was not well visualized. The aortic root size is normal. IVC Not well visulized. There is no pericardial effusion. CONCLUSIONS -------- 1. Sinus rhythm. 2. This was a technically difficult study with suboptimal views. 3. The left ventricular size is normal. 4. There is mild concentric left ventricular hypertrophy. 5. Overall left ventricular systolic function is normal with, an EF between 55 - 60 %. 6. Normal LA size by volume 22+/-6 ml/m2. 7. The right atrium was not well visualized. 8. 3 ml of Lumason was utilized for enhancement of images. 9. The aortic valve is trileaflet, and appears structurally normal. No aortic stenosis or regurgitati on. 10. Mild mitral regurgitation is present. 11. Trace tricuspid regurgitation present. 12. Right ventricular systolic pressure is normal at < 35 mmHg. 13. The pulmonic valve was not well visualized. 14. The aortic root size is normal. 15. IVC Not well visulized. 16. There is no pericardial effusion. LORRY WEIGHER: Bethel Schmidt RDCS
[2018-02-25 19:41] LABS: Hemoglobin A1C 5.8 % (4.0-6.0)
[2018-02-25 20:15] LABS: Glucose,Whole Blood 272 mg/dL (75-99)
[2018-02-25] MEDS: MONTELUKAST 10 MG TAB PO SCH (20:55)
[2018-02-25] MEDS: INSULIN DETEMIR 100 UNIT/ML 10 ML VIAL SQ SCH (22:36)
[2018-02-25] MEDS: cloZAPine 100 MG TAB PO SCH (22:36)
[2018-02-25] MEDS: AZITHROMYCIN 500 MG TAB PO SCH (22:39)
[2018-02-26] MEDS: methylPREDNISolone SOD SUCCI 125 MG/2 ML VIAL IV SCH ×2 (00:37→06:48)
[2018-02-26 07:19] LABS: Glucose,Whole Blood 142 mg/dL (75-99)
[2018-02-26] MEDS: BUDESONIDE 0.5 MG/2 ML NEBU INHALATION SCH ×2 (07:35→19:21)
[2018-02-26] MEDS: IPRATROPIUM-ALBUTEROL 3 ML NEB INHALATION SCH ×4 (07:35→19:21)
[2018-02-26 07:40] LABS: HCT 41.5 % (39.0-53.0); HGB 13.5 gm/dL (13.0-17.5); MCH 27.9 pg (25.0-35.0); MCHC 32.5 g/dL (31.0-37.0); MCV 85.7 fL (80.0-100.0); Mean Platelet Volume 6.4; Platelet Count 306 k/uL (150-450); RBC 4.84 m/uL (4.30-5.90); RDW 15.1 % (11.5-15.5); WBC 25.7 k/uL (3.8-10.6)
[2018-02-26] MEDS: INSULIN ASPART 100 UNIT/ML 1 ML 10 ML VIAL SQ SCH ×4 (07:49→20:08)
[2018-02-26] MEDS: NICOTINE 14MG/24HR PATCH TRANSDERM SCH (07:49)
[2018-02-26] MEDS: DULoxetine HCL 60 MG CAPSULE.DR PO SCH (07:50)
[2018-02-26] MEDS: POTASSIUM CHLORIDE ER 20 MEQ TAB.ER PO SCH (07:50)
[2018-02-26] MEDS: FUROSEMIDE 40 MG TAB PO SCH (07:50)
[2018-02-26] MEDS: APIXABAN 5 MG TAB PO SCH ×2 (07:50→20:09)
[2018-02-26] MEDS: FAMOTIDINE 20 MG TAB PO SCH ×2 (07:51→20:09)
[2018-02-26 08:10] LABS: Anion Gap 8 mmol/L; Blood Urea Nitrogen 17 mg/dL (9-20); Calcium 9.1 mg/dL (8.4-10.2); Carbon Dioxide 28 mmol/L (22-30); Chloride 106 mmol/L (98-107); Glucose 140 mg/dL (74-99); Potassium 4.6 mmol/L (3.5-5.1); Sodium 142 mmol/L (137-145)
--- NOTE | 2018-02-26 10:38 | PN ---
PROGRESS NOTE He was seen again on 02/26/2018. He is less short of breath. He is starting to wheeze and move more air. PHYSICAL EXAMINATION: On physical examination, he was lying in bed. His respiratory rate is 22, pulse rate if 110, temperature 97.5, O2 saturation on 2 L by nasal cannula is 93%. HEENT reveals pupils are equal. Chest reveals prolonged expiration with expiratory wheeze. Cardiovascular system reveals an S1, S2. Abdomen is soft with no pedal edema. IMPRESSION AT THIS TIME: 1. Acute lung injury secondary to exposure to CBD oil and possibly flavorings such as with bilateral alveolar type infiltrates consistent with noncardiogenic pulmonary edema. 2. Asthma with exacerbation. 3. Previous history of pulmonary embolism. Continue high dose steroids, but switch him to oral steroids. Continue antibiotics as we are unable to rule out a secondary bacterial infection. Increase his activity level. Check a chest x-ray tomorrow. Depending on how he does, we shall make further changes to his care. He was counseled regarding his condition and this approach and has a fair understanding of our recommendations. He was counseled regarding his condition. MMODL / IJN: [id number] /
[2018-02-26 11:26] LABS: Glucose,Whole Blood 236 mg/dL (75-99)
[2018-02-26] MEDS: predniSONE 20 MG TAB PO SCH (14:35)
[2018-02-26 16:28] LABS: Glucose,Whole Blood 179 mg/dL (75-99)
--- NOTE | 2018-02-26 18:14 | P.PN ---
Subjective Progress Note Date: 02/26/18 This is a 42-year-old pleasant gentleman patient of Dr. Christensen and Dr. Lanre Perkins. He came in with shortness of breath of approximately 1-2 days duration, dry cough, fever and chills, patient has a nebulizer which is not helping, patient sees Dr. Lanre Perkins for her pulmonary embolism and asthma for which she is not on Xolair shots. Patient has been out of his Eliquis for the past 3 days , patient denies any hemoptysis or hypoxemia, and was subsequently seen emergency room. In the emergency room, imaging studies shows pneumonia with infectious processes rather than CHF that was noted, mild lactic acidosis, treatment would be provided for Commit acquired pneumonia IV form, IV steroids, and nebulized treatments. Consult with Dr. Lanre Perkins, Nocardia gram to be done for pulmonary edema, Lasix to be given, Rocephin and Zithromax 02/25: Patient continues to have some shortness of breath but a little bit better from yesterday. He has a tight cough. He continues to have some wheezing. Solu-Medrol is at 60 mg every 6 hours and will be maintained. IV fluids will be discontinued and IV Lasix will be switched to oral. Anticipate discharge in the next 24-48 hours pending progress. Patient is followed by Dr. SUKHDEV Perkins. He is afebrile, pulse ox is 93% on room air, heart rate running 90s to low 100s. Plan to start patient on NovoLog scale. 02/26: Patient states that his shortness of breath is better. Patient states that he is still having a cough and some wheezing. We will change the Solu- Medrol from IV to by mouth prednisone. We will anticipate discharge possibly tomorrow depending on progress. Patient has been afebrile, pulse ox is 94% on room air, heart rate in the 70s. Review Of Systems: Constitutional: No fever, no chills, no night sweats. No weight change. No weakness, fatigue or lethargy. No daytime sleepiness. EENT: No headache. No blurred vision or double vision, no loss of vision. No loss of Hearing, no ringing in the ears, no dizziness. No nasal drainage or congestion. No epistaxis. No sore throat. Lungs: Complains of shortness of breath, complains of cough, no sputum production. Complains of wheezing. Cardiovascular: No chest pain, no lower extremity edema. No palpitations. No paroxysmal nocturnal dyspnea. No orthopnea. No lightheadedness or dizziness. No syncopal episodes. Abdominal: No abdominal pain. No nausea, vomiting. No diarrhea. No constipation. No bloody or tarry stools.. No loss of appetite. Genitourinary: No dysuria, increased frequency, urgency. No urinary retention. Musculoskeletal: No myalgias. No muscle weakness, no gait dysfunction, no frequent falls. No back pain. No neck pain. Integumentary: No wounds, no lesions. No rash or pruritus. No unusual bruising. No change in hair or nails. Neurologic: No aphasia. No facial droop. No change in mentation. No head injury. No headache. No paralysis. No paresthesia. Psychiatric: No depression. No anxiety. No mood swings. Endocrine: No abnormal blood sugars. No weight change. No excessive sweating or thirst. No cold intolerance. Objective - Vital Signs Vital signs: Vital Signs Temp 97.9 F 02/26/18 11:59 Pulse 76 02/26/18 15:23 Resp 17 02/26/18 11:59 BP 98/51 02/26/18 11:59 Pulse Ox 94 L 02/26/18 11:59 Intake & Output 02/25/18 02/26/18 02/26/18 18:59 06:59 18:59 Intake Total 450 250 50 Balance 450 250 50 Intake: Intake, IV Titration 450 250 50 Amount Sodium Chloride 0.9% 1, 450 150 000 ml @ 75 mls/hr IV . [id number] RODRIGO Rx#:[id number] cefTRIAXone 1,000 mg In 100 50 Sodium Chloride 0.9% 50 ml @ 100 mls/hr IVPB Q24H RODRIGO Rx#:[id number] Other: Voiding Method Toilet Toilet # Voids 4 4 2 - Constitutional General appearance: Present: cooperative, no acute distress, obese - EENT Eyes: Present: anicteric sclerae, EOMI, PERRLA ENT: Present: hearing grossly normal, normal oropharynx - Neck Neck: Present: normal ROM. Absent: lymphadenopathy - Respiratory Respiratory: bilateral: CTA, negative: diminished, dullness, rales, rhonchi, wheezing - Cardiovascular Rhythm: regular Heart sounds: normal: S1, S2 Abnormal Heart Sounds: Absent: systolic murmur, diastolic murmur, rub, S3 Gallop , S4 Gallop, click, other - Gastrointestinal General gastrointestinal: Present: normal bowel sounds, soft. Absent: organomegaly, tenderness - Integumentary Integumentary: Present: normal turgor - Neurologic Neurologic Comment(s): CPAP at bedside Neurologic: Present: CNII-XII intact - Musculoskeletal Musculoskeletal: Present: gait normal, generalized weakness, strength equal bilaterally - Psychiatric Psychiatric: Present: A&O x's 3, appropriate affect, intact judgment & insight - Labs CBC & Chem 7: 02/26/18 07:21 02/26/18 07:21 Labs: Abnormal Lab Results - Last 24 Hours (Table) 02/25/18 02/26/18 02/26/18 Range/Units 20:13 07:18 07:21 WBC 25.7 H (3.8-10.6) k/uL Glucose (74-99) mg/dL POC Glucose (mg/dL) 272 H 142 H (75-99) mg/dL 02/26/18 02/26/18 02/26/18 Range/Units 07:21 11:25 16:26 WBC (3.8-10.6) k/uL Glucose 140 H (74-99) mg/dL POC Glucose (mg/dL) 236 H 179 H (75-99) mg/dL Microbiology - Last 24 Hours (Table) 02/25/18 22:08 Gram Stain - Preliminary Sputum 02/23/18 22:14 Blood Culture - Preliminary Blood No Growth after 48 hours Assessment and Plan Plan: 1. Community acquired pneumonia possibly from inhalation injury from exposure to gases from fire extinguisher and confined space, possible hypersensitivity pneumonitis or secondary bacterial infection with asthma exacerbation and presenting with SEPSIS. Consult with Dr. SUKHDEV Perkins appreciated. Continue DuoNeb treatments 4 times daily every 4 hours as needed, azithromycin, ceftriaxone, prednisone 60 mg daily by mouth, Singulair 10 mg at bedtime. Utilize incentive spirometer 2. Moderate persistent asthma, not requiring Xolair from pulmonary. Continue treatment as in #1 3. Obstructive sleep apnea on CPAP machine for which patient is using at bedside 4. Acute pulmonary edema, IV Lasix changed to oral Lasix 40 mg daily, echocardiogram to be performed. 5. History of pulmonary embolism on Long-term anticoagulation using Eliquis 6. Lactic acidosis secondary to pneumonia, status post fluid resuscitation 7. Recurrent depression. Continue Cymbalta and Clozaril. 8. Current tobacco use, patient was offered nicotine patches 14 g which was initiated. 9. Hyperglycemia most likely secondary to steroids. NovoLog scale before meals and at bedtime. Hemoglobin A1c 5.8 DVT prophylaxis on eliquis GI prophylaxis on Pepcid Discharge planning home in approximately 24-48 hours Impression and plan of care have been directed as dictated by the signing physician. Steff Rivera nurse practitioner acting as scribe for signing physician.
[2018-02-26 19:58] LABS: Glucose,Whole Blood 200 mg/dL (75-99)
[2018-02-26] MEDS: INSULIN DETEMIR 100 UNIT/ML 10 ML VIAL SQ SCH (20:08)
[2018-02-26] MEDS: AZITHROMYCIN 500 MG TAB PO SCH (20:09)
[2018-02-26] MEDS: MONTELUKAST 10 MG TAB PO SCH (20:09)
[2018-02-26] MEDS: cloZAPine 100 MG TAB PO SCH (23:42)
[2018-02-27 04:43] VITALS: BP 120/79; RESP 18; TEMP 97.5
--- NOTE | 2018-02-27 07:34 | XR ---
EXAMINATION TYPE: XR chest 2V DATE OF EXAM: 02/27/2018 COMPARISON: 02/23/2018 HISTORY: Chest pain TECHNIQUE: Frontal and lateral views of the chest are obtained. FINDINGS: Reticulonodular infiltrates persist. Findings may be on the basis of interstitial pneumonia. Correlat e clinically. No evidence for pneumothorax. No pleural effusion. The cardiac silhouette size is within normal limits. The osseous structures are grossly intact. IMPRESSION: 1. Reticulonodular infiltrates persist. Findings may be on the basis of interstitial pneumonia. Sohail elate clinically.
[2018-02-27 07:42] LABS: Glucose,Whole Blood 87 mg/dL (75-99)
[2018-02-27] MEDS: INSULIN ASPART 100 UNIT/ML 1 ML 10 ML VIAL SQ SCH ×2 (07:43→11:51)
[2018-02-27] MEDS: BUDESONIDE 0.5 MG/2 ML NEBU INHALATION SCH (08:43)
[2018-02-27] MEDS: IPRATROPIUM-ALBUTEROL 3 ML NEB INHALATION SCH (08:43)
[2018-02-27] MEDS: NICOTINE 14MG/24HR PATCH TRANSDERM SCH (08:47)
[2018-02-27] MEDS: predniSONE 20 MG TAB PO SCH (08:48)
[2018-02-27] MEDS: DULoxetine HCL 60 MG CAPSULE.DR PO SCH (08:49)
[2018-02-27] MEDS: APIXABAN 5 MG TAB PO SCH (08:49)
[2018-02-27] MEDS: FUROSEMIDE 40 MG TAB PO SCH (08:49)
[2018-02-27] MEDS: POTASSIUM CHLORIDE ER 20 MEQ TAB.ER PO SCH (08:49)
[2018-02-27] MEDS: FAMOTIDINE 20 MG TAB PO SCH (08:49)
[2018-02-27 08:59] VITALS: PULSE 78
[2018-02-27 11:52] LABS: Glucose,Whole Blood 110 mg/dL (75-99)
--- NOTE | 2018-02-27 13:42 | CONS ---
CONSULTATION DATE OF SERVICE: February 27, 2018. He has been hemodynamically stable. He is less short of breath. On physical examination, vitals are stable. He is afebrile. His chest is relatively clear. Cardiovascular system reveals S1, S2. Abdomen is soft. There is no edema. Chest x-ray does show persistence of reticular nodular infiltrates. IMPRESSION: At this time is: 1. Atypical pneumonia, most likely secondary to inhalation of CBD oil along with possible favoring. 2. Cannot rule out a secondary bacterial infection. Agree with discharge planning on steroids with a slow taper. We will follow him closely as an outpatient and repeat a CT scan of the chest in a few weeks once he has decreased his exposure to inhalational substances. Depending on how he does, we should make further changes to his care. DANGELO / HOWARD: [id number] /
--- NOTE | 2018-02-27 17:03 | P.DS ---
Providers Date of admission: 02/23/18 23:44 Attending physician: Salima Banerjee Consults: 02/24/18 14:12 Consult Physician Routine Consulting Provider: Sujit Perkins Consult Reason/Comments: asthma pulmonary edema Do you want consulting provider notified?: Yes Primary care physician: [facility] Course: This is a 42-year-old pleasant gentleman patient of Dr. Christensen and Dr. Lanre Perkins. He came in with shortness of breath of approximately 1-2 days duration, dry cough, fever and chills, patient has a nebulizer which is not helping, patient sees Dr. Lanre Perkins for her pulmonary embolism and asthma for which she is not on Xolair shots. Patient has been out of his Eliquis for the past 3 days , patient denies any hemoptysis or hypoxemia, and was subsequently seen emergency room. In the emergency room, imaging studies shows pneumonia with infectious processes rather than CHF that was noted, mild lactic acidosis, treatment would be provided for Commit acquired pneumonia IV form, IV steroids, and nebulized treatments. Consult with Dr. Lanre Perkins, Nocardia gram to be done for pulmonary edema, Lasix to be given, Rocephin and Zithromax 02/25: Patient continues to have some shortness of breath but a little bit better from yesterday. He has a tight cough. He continues to have some wheezing. Solu-Medrol is at 60 mg every 6 hours and will be maintained. IV fluids will be discontinued and IV Lasix will be switched to oral. Anticipate discharge in the next 24-48 hours pending progress. Patient is followed by Dr. SUKHDEV Perkins. He is afebrile, pulse ox is 93% on room air, heart rate running 90s to low 100s. Plan to start patient on NovoLog scale. 02/26: Patient states that his shortness of breath is better. Patient states that he is still having a cough and some wheezing. We will change the Solu- Medrol from IV to by mouth prednisone. We will anticipate discharge possibly tomorrow depending on progress. Patient has been afebrile, pulse ox is 94% on room air, heart rate in the 70s. Patient is feeling better he is up ambulatory in the hallways without any difficulty. Patient states that his breathing has improved since yesterday. It is anxious to go home patient has been afebrile and vital signs have been stable. Discharge diagnoses: 1. Community acquired pneumonia possibly from inhalation injury from exposure to gases from fire extinguisher and confined space, possible hypersensitivity pneumonitis or secondary bacterial infection with asthma exacerbation and presenting with SEPSIS. C 2. Moderate persistent asthma, not requiring Xolair from pulmonary. 3. Obstructive sleep apnea on CPAP machine 4. Acute pulmonary edema 5. History of pulmonary embolism 6. Lactic acidosis secondary to pneumonia 7. Recurrent depression. 8. Current tobacco use 9. Hyperglycemia most likely secondary to steroids. Disposition: Home with self-care CC Dr. Christensen Impression and plan of care have been directed as dictated by the signing physician. Steff Rivera nurse practitioner acting as scribe for signing physician. Patient Condition at Discharge: Good Plan - Discharge Summary Discharge Rx Participant: Yes New Discharge Prescriptions: New Azithromycin [Zithromax] 500 mg PO Q24H #6 tab Ipratropium-Albuterol Nebulize [Duoneb 0.5 mg-3 mg/3 ml Soln] 3 ml INHALATION RT-QID ampul.neb Ipratropium-Albuterol Nebulize [Duoneb 0.5 mg-3 mg/3 ml Soln] 3 ml INHALATION RT-Q4H PRN ampul.neb PRN Reason: Shortness Of Breath Or Wheezing Nicotine 14Mg/24Hr Patch [Habitrol] 1 patch TRANSDERM DAILY #7 patch predniSONE 10 mg PO DAILY #30 tab Continue cloZAPine [Clozaril] 100 mg PO HS DULoxetine HCL [Cymbalta] 60 mg PO DAILY Budesonide [Pulmicort Flexhaler] 2 puff INHALATION RT-BID Apixaban [Eliquis] 5 mg PO BID Montelukast [Singulair] 10 mg PO HS Discharge Medication List cloZAPine [Clozaril] 100 mg PO HS 04/29/14 [History] Apixaban [Eliquis] 5 mg PO BID 02/23/18 [History] Budesonide [Pulmicort Flexhaler] 2 puff INHALATION RT-BID 02/23/18 [History] DULoxetine HCL [Cymbalta] 60 mg PO DAILY 02/23/18 [History] Montelukast [Singulair] 10 mg PO HS 02/23/18 [History] Azithromycin [Zithromax] 500 mg PO Q24H #6 tab 02/27/18 [Rx] Ipratropium-Albuterol Nebulize [Duoneb 0.5 mg-3 mg/3 ml Soln] 3 ml INHALATION RT -Q4H PRN ampul.neb 02/27/18 [Rx] Ipratropium-Albuterol Nebulize [Duoneb 0.5 mg-3 mg/3 ml Soln] 3 ml INHALATION RT -QID ampul.neb 02/27/18 [Rx] Nicotine 14Mg/24Hr Patch [Habitrol] 1 patch TRANSDERM DAILY #7 patch 02/27/18 [ Rx] predniSONE 10 mg PO DAILY #30 tab 02/27/18 [Rx] Follow up Appointment(s)/Referral(s): Moise Christensen MD [Primary Care Provider] - 1-2 days Patient Instructions/Handouts: Prednisone (By mouth), Azithromycin (By mouth), Nicotine (Absorbed through the skin), Asthma (DC), Community Acquired Pneumonia (DC) Discharge Disposition: HOME SELF-CARE
[2018-03-02 16:56] LABS: Alternaria Alternata IgG 26.2 mcg/mL (< 13.6); Aspergillus fumigatus IgG Not detected (Not detected); Aureobasidium pullulans IgG 32.4 mcg/mL (< 13.6); Cladosporium herbarium IgG 42.3 mcg/mL (< 14.7); Phoma ssp. IgG 27.6 mcg/mL (< 6.6); Saccaharomospora viridis Not detected (Not detected); Saccaharopoly. rectivirgula Not detected (Not detected)
== END 2018-02-27 12:25 | disposition home or self-care (01) | DRG 871 ==
LOC: EC 21:43 → 3NMEDONC 23:44
PROVIDERS: ADMIT Family Medicine; ATTEND Family Medicine
DX: A41.9 Sepsis, unspecified organism (principal); J69.0 Pneumonitis due to inhalation of food and vomit; J81.0 Acute pulmonary edema; T17.890A Other foreign object in other parts of respiratory tract causing asphyxiation, initial encounter; J67.9 Hypersensitivity pneumonitis due to unspecified organic dust; J45.41 Moderate persistent asthma with (acute) exacerbation; E87.2 Acidosis; F33.9 Major depressive disorder, recurrent, unspecified; Z68.41 Body mass index [BMI] 40.0-44.9, adult; F20.9 Schizophrenia, unspecified; T40.7X1A Poisoning by cannabis (derivatives), accidental (unintentional), initial encounter; E66.9 Obesity, unspecified; G47.33 Obstructive sleep apnea (adult) (pediatric); R73.9 Hyperglycemia, unspecified; T38.0X5A Adverse effect of glucocorticoids and synthetic analogues, initial encounter; F19.11 Other psychoactive substance abuse, in remission; F17.210 Nicotine dependence, cigarettes, uncomplicated; Z71.6 Tobacco abuse counseling; Z79.01 Long term (current) use of anticoagulants; Z79.51 Long term (current) use of inhaled steroids; Z79.899 Other long term (current) drug therapy; Z99.89 Dependence on other enabling machines and devices; Z86.711 Personal history of pulmonary embolism; Z88.8 Allergy status to other drugs, medicaments and biological substances
CPT/HCPCS: 36415; 71045; 71046; 71275; 80048; 80053; 82550; 82553; 83036; 83605; 83735; 83880; 84484; 85025; 85027; 85610; 85730; 86001; 86606; 86609; 87040; 87070; 87205; 87502; 93306; 94640; 96365; 96375; 99285

== ENCOUNTER → 2018-03-15 | Outpatient (CLI) | payer MEDICARE, OTHER ==
--- NOTE | 2018-03-16 10:23 | CT ---
EXAMINATION TYPE: CT chest wo con DATE OF EXAM: 03/15/2018 COMPARISON: 02/23/2018 HISTORY: sob, hx pneumonia ([facility]) CT DLP: 706.50 mGycm. Automated Exposure Control for Dose Reduction was Utilized. TECHNIQUE: CT scan of the thorax is performed without IV contrast. FINDINGS: LUNGS: There is complete resolution of previously seen pulmonary edema and reticular opacities. There are small right apical pulmonary blebs noted (3 in number). Deposition of subpleural fat is seen on the left lung base. The lungs are grossly clear, there is no concerning parenchymal mass or nodule id entified. There is no pleural effusion or pneumothorax seen. The tracheobronchial tree is patent. MEDIASTINUM: Lack of IV contrast is noted to limit evaluation for mediastinal and especially hilar ad enopathy. 1 cm short axis left aortopulmonary lymph node appears slightly smaller than the prior. 1.2 cm short axis right paratracheal lymph node has a fatty hilum. No cardiomegaly. There is a small per icardial effusion with maximum thickness of 1.2 cm. OTHER: Mild multilevel degenerative changes of the spine are noted. IMPRESSION: 1. Complete resolution of the previously seen pulmonary edema and interstitial pneumonitis. 2. No findings to suggest interstitial lung disease. 3. 3 subcentimeter right apical pulmonary blebs. 4. Very mildly enlarged mediastinal lymph nodes appear slightly less conspicuous than on the prior an d the largest contains a fatty hilum. These are likely reactive.
== END | disposition home or self-care (01) ==
LOC: RADCTMAIN 16:16
PROVIDERS: ATTEND Internal Medicine Pulmonary Disease
DX: J43.9 Emphysema, unspecified (principal); R59.9 Enlarged lymph nodes, unspecified
CPT/HCPCS: 71250

== ENCOUNTER → 2019-03-31 | Outpatient (CLI) | payer MEDICARE, OTHER ==
--- NOTE | 2019-03-31 22:43 | CT ---
EXAMINATION TYPE: CT chest wo con DATE OF EXAM: 03/31/2019 COMPARISON: Chest CT March 15, 2018 and older studies. HISTORY: hx asthma and hypersensitivity pneumonitis. CT DLP: 643 mGycm. Automated Exposure Control for Dose Reduction was Utilized. TECHNIQUE: CT scan of the thorax is performed without IV contrast. FINDINGS: LUNGS: Patchy irregular infiltrate right middle lobe anteriorly near axial images 38 through 40 has s light groundglass and nodular component and is new from older studies extending inferiorly and medial ly. Stable linear scarring anteriorly in the lingula image 45. No pleural effusion or pneumothorax. F ew tiny blebs in posterior aspect right lung apex redemonstrated. No concerning masses. MEDIASTINUM: Lack of IV contrast is noted to limit evaluation for mediastinal and especially hilar ad enopathy. There are no definitive new greater than 1 cm hilar or mediastinal lymph nodes. Stable prom inent but subcentimeter mediastinal lymph nodes. Stable tiny pericardial effusion is seen. No cardiom egaly. OTHER: Liver is diffusely low dense consistent with diffuse fatty infiltration. Small degree of bilat eral subareolar gynecomastia is redemonstrated. IMPRESSION: New small focal area of irregular infiltrate right middle lobe could reflect acute infect ious process or hypersensitivity pneumonitis in appropriate clinical setting. Correlate clinically.
== END | disposition home or self-care (01) ==
LOC: RADCTMAIN 16:34
PROVIDERS: ATTEND Internal Medicine Pulmonary Disease
DX: R91.8 Other nonspecific abnormal finding of lung field (principal); J45.40 Moderate persistent asthma, uncomplicated; F25.9 Schizoaffective disorder, unspecified
CPT/HCPCS: 71250

== ENCOUNTER 2020-02-05 15:26 | Emergency (ER) | payer MEDICARE, OTHER ==
--- NOTE | 2020-02-05 15:59 | ED ---
General Adult HPI - General Chief complaint: Upper Respiratory Infection Stated complaint: SOB Time Seen by Provider: 02/05/20 15:46 Source: patient Mode of arrival: wheelchair Limitations: no limitations - History of Present Illness Initial comments: Dictation was produced using [employer] dictation software. please excuse any grammatical, word or spelling errors. This patient was cared for during a federal and state declared state of emergency secondary to Covid 19 Chief Complaint: 44-year-old male with extensive history of asthma, PE presents today with dyspnea History of Present Illness: 44-year-old male who presents today with dyspnea. Patient states for the last week is feeling short of breath. States that his symptoms are on and off. Patient has been admitted to the hospital multiple occasions for pulmonary infections. Face for the last week he has been feeling dyspneic on off. He is concerned he is having a recurrence of pulmonary infection. He's been using his nebulized treatments at home with no significant improvement of symptoms. Patient has history of pulmonary embolism. Takes Eliquis as a prophylaxis. Denies any lower extremity symptoms. No swelling or pain in his legs. Denies any pain complaints. Patient feels fatigued. He denies any body aches. No anosmia. Denies any Raynaud's or sore throat. He denies any cough. The ROS documented in this emergency department record has been reviewed and confirmed by me. Those systems with pertinent positive or negative responses have been documented in the HPI. All other systems are other negative and/or noncontributory. PHYSICAL EXAM: General Impression: Alert and oriented x3, not in acute distress HEENT: Normocephalic atraumatic, extra-ocular movements intact, pupils equal and reactive to light bilaterally, mucous membranes moist. Cardiovascular: Heart regular rate and rhythm Chest: Able to complete full sentences, no retractions, no tachypnea, lungs clear to auscultation bilaterally Abdomen: abdomen soft, non-tender, non-distended, no organomegaly Musculoskeletal: Pulses present and equal in all extremities, no peripheral edema Motor: no focal deficits noted Neurological: CN II-XII grossly intact, no focal motor or sensory deficits noted Skin: Intact with no visualized rashes Psych: Normal affect and mood ED course: 44-year-old male presents with dyspnea vital signs upon arrival shows heart rate of 108, oxygen saturation 90% on room air. Patient reports that he is has history of asthma. Laboratory evaluation obtained. Mild leukocytosis of 14.8 this is likely secondary to patient's regular use of steroids. Rest of labs unremarkable. And brain natruretic peptide is negative. Chest x-ray is nonacute. Patient colton luated bedside. No dyspnea. He has clear lung sounds. He does take prophylactic DVT medications. He is unlikely considering he does take anticoagulation medications. Patient's symptoms likely secondary to ALLERGIES versus viral URI. Patient given dose of Zithromax pack to take as a wait and se e. He is advised to take medication of his symptoms are getting worse in 2-3 days. is advised to follow-up with his primary care doctor. EKG interpretation: Ventricular rate 102, sinus tachycardia, MO interval 158, QRS 112, QTC 427. No MO prolongation, no QTC prolongation, no ST or T-wave changes noted. EKG compared to 02/23/2018 showing no changes. Overall, this EKG is unremarkable - Related Data Home Medications Medication Instructions Recorded Confirmed cloZAPine [Clozaril] 100 mg PO HS 04/29/14 02/24/18 Apixaban [Eliquis] 5 mg PO BID 02/23/18 02/24/18 Budesonide [Pulmicort Flexhaler] 2 puff INHALATION RT-BID 02/23/18 02/24/18 DULoxetine HCL [Cymbalta] 60 mg PO DAILY 02/23/18 02/24/18 Montelukast [Singulair] 10 mg PO HS 02/23/18 02/24/18 Previous Rx's Medication Instructions Recorded Azithromycin [Zithromax] 500 mg PO Q24H #6 tab 02/27/18 Ipratropium-Albuterol Nebulize 3 ml INHALATION RT-Q4H PRN 02/27/18 [Duoneb 0.5 mg-3 mg/3 ml Soln] ampul.neb Ipratropium-Albuterol Nebulize 3 ml INHALATION RT-QID ampul.neb 02/27/18 [Duoneb 0.5 mg-3 mg/3 ml Soln] Nicotine 14Mg/24Hr Patch [Habitrol] 1 patch TRANSDERM DAILY #7 patch 02/27/18 predniSONE 10 mg PO DAILY #30 tab 02/27/18 Azithromycin [Zithromax Z-pack] 0 mg PO DIRECTED #6 tab 02/05/20 Allergies Allergy/AdvReac Type Severity Reaction Status Date / Time venlafaxine HCl Allergy Nausea & Verified 02/05/20 15:37 [From Effexor] Vomiting Review of Systems ROS Statement: Those systems with pertinent positive or pertinent negative responses have been documented in the HPI. ROS Other: All systems not noted in ROS Statement are negative. Past Medical History Past Medical History: Pulmonary Embolus (PE), Sleep Apnea/CPAP/BIPAP Additional Past Medical History / Comment(s): Sleep apnea- CPAP, bilateral PE 2014 and takes Eliquis for this. History of Any Multi-Drug Resistant Organisms: None Reported Past Surgical History: No Surgical Hx Reported Past Anesthesia/Blood Transfusion Reactions: No Reported Reaction Past Psychological History: Schizophrenia Smoking Status: Vaper Past Alcohol Use History: None Reported Past Drug Use History: Cocaine, IV Drug Use - Past Family History Mother Family Medical History: No Reported History Father History Unknown: Yes Family Medical History: Cancer Additional Family Medical History / Comment(s): History of skin cancer. Sister(s) Family Medical History: No Reported History General Exam Limitations: no limitations Course Vital Signs 02/05/20 15:33 Temperature 98.3 F Pulse Rate 108 H Respiratory 20 Rate Blood Pressure 143/74 O2 Sat by Pulse 93 L Oximetry Medical Decision Making - Lab Data Result diagrams: 02/05/20 16:04 02/05/20 16:04 Lab Results 02/05/20 02/05/20 02/05/20 Range/Units 16:04 16:04 16:04 WBC 14.8 H (3.8-10.6) k/uL RBC 5.36 (4.30-5.90) m/uL Hgb 15.4 (13.0-17.5) gm/dL Hct 47.9 (39.0-53.0) % MCV 89.4 (80.0-100.0) fL MCH 28.8 (25.0-35.0) pg MCHC 32.2 (31.0-37.0) g/dL RDW 14.2 (11.5-15.5) % Plt Count 321 (150-450) k/uL Neutrophils % 70 % Lymphocytes % 20 % Monocytes % 6 % Eosinophils % 2 % Basophils % 1 % Neutrophils # 10.3 H (1.3-7.7) k/uL Lymphocytes # 3.0 (1.0-4.8) k/uL Monocytes # 0.9 (0-1.0) k/uL Eosinophils # 0.2 (0-0.7) k/uL Basophils # 0.1 (0-0.2) k/uL Sodium 137 (137-145) mmol/L Potassium 3.8 (3.5-5.1) mmol/L Chloride 104 (98-107) mmol/L Carbon Dioxide 27 (22-30) mmol/L Anion Gap 6 mmol/L BUN 12 (9-20) mg/dL Creatinine 0.92 (0.66-1.25) mg/dL Est GFR (CKD-EPI)AfAm >90 (>60 ml/min/1.73 sqM) Est GFR (CKD-EPI)NonAf >90 (>60 ml/min/1.73 sqM) Glucose 130 H (74-99) mg/dL Calcium 9.1 (8.4-10.2) mg/dL Magnesium 2.3 (1.6-2.3) mg/dL Total Bilirubin 0.9 (0.2-1.3) mg/dL AST 24 (17-59) U/L ALT 47 (4-49) U/L Alkaline Phosphatase 72 (38-126) U/L Troponin I <0.012 (0.000-0.034) ng/mL NT-Pro-B Natriuret Pep pg/mL Total Protein 6.7 (6.3-8.2) g/dL Albumin 4.0 (3.5-5.0) g/dL 02/05/20 Range/Units 16:04 WBC (3.8-10.6) k/uL RBC (4.30-5.90) m/uL Hgb (13.0-17.5) gm/dL Hct (39.0-53.0) % MCV (80.0-100.0) fL MCH (25.0-35.0) pg MCHC (31.0-37.0) g/dL RDW (11.5-15.5) % Plt Count (150-450) k/uL Neutrophils % % Lymphocytes % % Monocytes % % Eosinophils % % Basophils % % Neutrophils # (1.3-7.7) k/uL Lymphocytes # (1.0-4.8) k/uL Monocytes # (0-1.0) k/uL Eosinophils # (0-0.7) k/uL Basophils # (0-0.2) k/uL Sodium (137-145) mmol/L Potassium (3.5-5.1) mmol/L Chloride (98-107) mmol/L Carbon Dioxide (22-30) mmol/L Anion Gap mmol/L BUN (9-20) mg/dL Creatinine (0.66-1.25) mg/dL Est GFR (CKD-EPI)AfAm (>60 ml/min/1.73 sqM) Est GFR (CKD-EPI)NonAf (>60 ml/min/1.73 sqM) Glucose (74-99) mg/dL Calcium (8.4-10.2) mg/dL Magnesium (1.6-2.3) mg/dL Total Bilirubin (0.2-1.3) mg/dL AST (17-59) U/L ALT (4-49) U/L Alkaline Phosphatase (38-126) U/L Troponin I (0.000-0.034) ng/mL NT-Pro-B Natriuret Pep <11 pg/mL Total Protein (6.3-8.2) g/dL Albumin (3.5-5.0) g/dL Disposition Clinical Impression: Dyspnea Disposition: HOME SELF-CARE Condition: Good Instructions (If sedation given, give patient instructions): Upper Respiratory Infection (ED) Prescriptions: Azithromycin [Zithromax Z-pack] 0 mg PO DIRECTED #6 tab Is patient prescribed a controlled substance at d/c from ED?: No Referrals: Moise Christensen MD [Primary Care Provider] - 1-2 days Time of Disposition: 16:49
[2020-02-05 16:20] LABS: Basophils # (A) 0.1 k/uL (0-0.2); Basophils % (A) 1 %; Eosinophils # (A) 0.2 k/uL (0-0.7); Eosinophils % (A) 2 %; HCT 47.9 % (39.0-53.0); HGB 15.4 gm/dL (13.0-17.5); Lymphocytes % (A) 20 %; MCH 28.8 pg (25.0-35.0); MCHC 32.2 g/dL (31.0-37.0); MCV 89.4 fL (80.0-100.0); Mean Platelet Volume 6.4; Monocytes # (A) 0.9 k/uL (0-1.0); Monocytes % (A) 6 %; Neutrophils # (A) 10.3 k/uL (1.3-7.7); Neutrophils % (A) 70 %; Platelet Count 321 k/uL (150-450); RBC 5.36 m/uL (4.30-5.90); RDW 14.2 % (11.5-15.5); WBC 14.8 k/uL (3.8-10.6)
[2020-02-05 16:30] LABS: ALT 47 U/L (4-49); AST 24 U/L (17-59); African American GFR (CKD) >90 (>60 ml/min/1.73 sqM); Alkaline Phosphatase 72 U/L (38-126); Anion Gap 6 mmol/L; Blood Urea Nitrogen 12 mg/dL (9-20); Calcium 9.1 mg/dL (8.4-10.2); Carbon Dioxide 27 mmol/L (22-30); Chloride 104 mmol/L (98-107); Glucose 130 mg/dL (74-99); Magnesium 2.3 mg/dL (1.6-2.3); Non-African American GFR(CKD) >90 (>60 ml/min/1.73 sqM); Potassium 3.8 mmol/L (3.5-5.1); Sodium 137 mmol/L (137-145); Total Bilirubin 0.9 mg/dL (0.2-1.3); Total Protein 6.7 g/dL (6.3-8.2)
--- NOTE | 2020-02-05 16:33 | XR ---
EXAMINATION TYPE: XR chest 2V DATE OF EXAM: 02/05/2020 CLINICAL HISTORY: dyspnea. TECHNIQUE: Frontal and lateral view of the chest. COMPARISON: 02/27/[address] chest 03/31/2019. FINDINGS: The cardiomediastinal silhouette is within normal limits for size. Pulmonary vasculature i s normal. There is no focal air space opacity, pleural effusion, or pneumothorax seen. The osseous st ructures are intact. IMPRESSION: No acute cardiopulmonary process.
[2020-02-05] MEDS ORDERED: dexAMETHasone 4 MG TAB PO STA (16:46)
[2020-02-05 17:05] VITALS: BP 138/78; PULSE 78; RESP 16; TEMP 98
== END 2020-02-05 17:03 | disposition home or self-care (01) ==
LOC: EC 15:26
DX: R06.02 Shortness of breath (principal); J45.909 Unspecified asthma, uncomplicated; G47.33 Obstructive sleep apnea (adult) (pediatric); Z79.51 Long term (current) use of inhaled steroids; Z79.01 Long term (current) use of anticoagulants; Z99.89 Dependence on other enabling machines and devices; Z86.711 Personal history of pulmonary embolism; Z88.8 Allergy status to other drugs, medicaments and biological substances
CPT/HCPCS: 36415; 93005; 83880; 80053; 83735; 84484; 85025; 87040; 71046; 99285; U0003

== ENCOUNTER → 2020-08-28 | Outpatient (CLI) | payer BC, MEDICARE, OTHER ==
--- NOTE | 2020-08-28 19:04 | CONS ---
CONSULTATION DATE OF SERVICE: 08/28/2020 44-year-old gentleman has been re-evaluated in Sleep Center for obstructive sleep apnea- hypopnea syndrome. HISTORY OF PRESENT ILLNESS/SLEEP WAVE EVALUATION: Last time patient was seen in [facility] on 08/19/2016. Patient continued to use CPAP equipment every night for the whole night. SLEEP SCHEDULE: Sleep schedule on weekdays from 10 p.m. to 7:30 a.m., on weekends from 12 midnight until 10:30 a.m. FALLING ASLEEP: Sometimes he has problems with falling asleep. Has TV set in bedroom. DURING SLEEP: He sleeps in different positions by himself so no clear information does he have any snoring while he uses his CPAP equipment. He wakes up from sleep once with nocturia. No history of hypnagogic hallucinations, sleep paralysis or cataplexy. During the night, he also grinding teeth. DURING THE DAY/SLEEP WAKE EVALUATION: In the morning, he indicated that he may wake up tired and has episodes of anxiety and depression. I checked his CPAP unit. CPAP pressure is 11 cm of water. Usage is 30/30 nights for more than 4 hours, average 8.5 hours per night. Machine does not have information about leak and apnea-hypopnea index. The patient using Sosa FX large-sized nasal pillow mask. PAST MEDICAL HISTORY: Positive for asthma, sinus problems, acid reflux, borderline prediabetes, pulmonary embolism, bilateral in 2014, schizoaffective disorder, back problems, depression. PAST SURGICAL HISTORY: None. MEDICATIONS: Clozaril 100 mg once a day, Cymbalta, Singulair, Eliquis, Albuterol. SOCIAL HISTORY: Currently using . History of positive smoking for about 10 years. Quit using alcohol in 2006. FAMILY HISTORY: Sleep apnea, snoring, headaches, cancer, mental illness. REVIEW OF SYSTEMS: Occasional awakenings from sleep on CPAP, otherwise negative. No fevers. No double vision. No recent chest pain. No shortness of breath. No abdominal pain. No blood in the urine. No seizures episodes. PHYSICAL EXAMINATION: GENERAL: A gentleman without distress. BP 116/77, HR 91, RR 18, height 5 feet 11 inches, weight 298.0, temperature 97.2, oxygen saturation at room air 92%. Body mass index 41.74. HEENT: PERRLA, EOMI. Oropharynx extremely low position of soft palate, Mallampati IV. NECK: Wide neck, 19.5 inches in circumference. Supple, no JVD. Thyroid is not palpable. LUNGS: Clear to percussion and to auscultation. Good air exchange. No wheezing or rhonchi. HEART: S1, S2 regular. No murmurs, gallops, or rubs. ABDOMEN: Obese. Soft and nontender. Bowel sounds are present. No organomegaly appreciated. EXTREMITIES: No clubbing or cyanosis. METAL TEMPERER: Awake, alert, and oriented X3. Cranial nerves 2 to 7 intact. There is no fasciculation or atrophy. noted. No focal deficits observed. IMPRESSION: 1. Obstructive sleep apnea-hypopnea syndrome documented previously by polysomnogram in our Sleep Center. The patient is on treatment with CPAP every night for the whole night, reading from the machine demonstrated good compliance. CPAP unit is old. He does not have information about apnea-hypopnea index or leak. 2. Obesity. Patient increased his weight since previous sleep study. 3. Asthma. 4. History of sinus problems. 5. Acid reflux. 6. Borderline blood sugar. 7. Status post pulmonary embolism bilaterally in 2015. 8. History of depression. 9. History of schizoaffective disorder. 10.Back problems. PLAN: 1. Prescription to replace CPAP unit to machine with automatic adjustments, range of the pressure 5-15. 2. Prescription for all necessary supplies including fitted tube, filters, nasal pillow mask Sosa FX large size. 3. Sleep hygiene with regular time in bed for 7-1/2 to 8 hours. 4. No driving if feeling any sleepiness. 5. Losing weight. 6. I will see patient for follow-up visit after he will receive new CPAP unit to evaluate his compliance with treatment, clinical response with treatment, clinical response on treatment, check apnea-hypopnea index leading from the new machine. Thank you very much for allowing me to participate in management of your patient. Sincerely, Lew Jordan MD, PhD, FAASM Diplomat of [place] [employer] [place] [employer] Tech of [facility] [place] MMODL / IJN: [id number] /
== END ==
LOC: SLEEP 14:54
PROVIDERS: ATTEND Internal Medicine
DX: G47.33 Obstructive sleep apnea (adult) (pediatric) (principal); E66.9 Obesity, unspecified; J45.909 Unspecified asthma, uncomplicated; K21.9 Gastro-esophageal reflux disease without esophagitis; Z87.09 Personal history of other diseases of the respiratory system; Z86.711 Personal history of pulmonary embolism; F25.9 Schizoaffective disorder, unspecified; F32.9 Major depressive disorder, single episode, unspecified; M53.80 Other specified dorsopathies, site unspecified; Z99.89 Dependence on other enabling machines and devices; Z87.891 Personal history of nicotine dependence; Z79.01 Long term (current) use of anticoagulants; Z68.41 Body mass index [BMI] 40.0-44.9, adult; Z88.5 Allergy status to narcotic agent
CPT/HCPCS: 99202

== ENCOUNTER → 2021-04-02 | Outpatient (CLI) | payer BC, MEDICARE, OTHER ==
--- NOTE | 2021-04-02 21:16 | SFUN ---
SLEEP CENTER FOLLOW UP NOTE DATE OF SERVICE: 04/02/2021 INTERVAL HISTORY: 45-year-old gentleman has been followed in Sleep Center for treatment of obstructive sleep apnea-hypopnea syndrome. Recently the patient received new CPAP unit and today is his first visit on new CPAP machine. The patient likes his CPAP unit, using it every night. No problems with the machine. No snoring. [place] Sleepiness Scale today is 9. I checked reading from the machine. It is in automatic regimen. Range of the pressure 5- 20 cm of water. Usage is 100% of nights more than 4 hours, average usage 8 hours 28 minutes per night, average pressure 9 cm of water and 95% of the time. Leak is 14.2 in 95% of the time. Apnea-hypopnea index is only 0.9 which is absolutely perfect. MEDICATIONS: Cymbalta, Singulair, Eliquis, albuterol, Clozaril. PHYSICAL EXAMINATION: GENERAL: Patient in no distress. BP 103/78, HR 93, weight 290.2, temperature 97.4, oxygen saturation at room air 96%. Oropharynx: Extremely low position of soft palate, Mallampati 4. NECK: Supple, no JVD. Thyroid is not palpable. LUNGS: Clear to percussion and to auscultation. Good air exchange. No wheezing or rhonchi. HEART: S1, S2 regular. No murmurs, gallops, or rubs. ABDOMEN: Obese. Soft and nontender. Bowel sounds are present. No organomegaly appreciated. EXTREMITIES: No clubbing or cyanosis. FITNESS COACH: Awake, alert, and oriented X3. Cranial nerves 2 to 7 intact. There is no fasciculation or atrophy. noted. No focal deficits observed. IMPRESSION: 1. Obstructive sleep apnea-hypopnea syndrome. Patient demonstrated 100% compliance with treatment. Normal respiration on CPAP, benefitting from treatment. 2. Obesity. 3. Asthma. 4. History of sinus problems. 5. Acid reflux. 6. History of borderline blood sugar. 7. Status post pulmonary embolism bilaterally in 2015. 8. History of schizoaffective disorder. 9. History of depression. 10.Back problems. PLAN: 1. Patient will continue to use PAP equipment every night for the whole night. 2. Sleep hygiene with regular time in bed for at least 7-1/2 to 8 hours. 3. Precautions related to driving. No driving if feeling sleepiness. 4. I will maintain all necessary prescription for PAP supplies including mask, tube, filters. 5. Watching weight. 6. Follow-up visit in 6 months or earlier if patient has any problems. Thank you very much for allowing me to participate in management of your patient. Sincerely, Lew Jordan MD, PhD, FAASM Diplomat of [place] [employer] Sleep Medicine Board of [place] [employer] of Internal Medicine [employer] of [facility] [place] MMODL / YAMILEXN: [id number] /
== END ==
LOC: SLEEP 15:47
PROVIDERS: ATTEND Internal Medicine
DX: G47.33 Obstructive sleep apnea (adult) (pediatric) (principal); E66.9 Obesity, unspecified; J45.909 Unspecified asthma, uncomplicated; K21.9 Gastro-esophageal reflux disease without esophagitis; M53.80 Other specified dorsopathies, site unspecified; F32.A Depression, unspecified; F25.9 Schizoaffective disorder, unspecified; Z87.09 Personal history of other diseases of the respiratory system; Z86.711 Personal history of pulmonary embolism; Z86.39 Personal history of other endocrine, nutritional and metabolic disease; Z99.89 Dependence on other enabling machines and devices; Z79.51 Long term (current) use of inhaled steroids; F17.200 Nicotine dependence, unspecified, uncomplicated; Z88.5 Allergy status to narcotic agent

== ENCOUNTER → 2021-11-06 | Outpatient (CLI) | payer BC, OTHER ==
--- NOTE | 2021-11-06 16:14 | P.PN ---
Subjective DATE: 11/06/2021 FOLLOW UP VISIT. Patient with obstructive sleep apnea hypopnea syndrome return to sleep center for follow-up visit. Information from previous visit have been reviewed. Patient is using PAP equipment every night for the whole night, getting PAP supplies in time. The patient does not have significant problems with the mask, PAP unit and humidification. [place] sleepiness scale is 2. I checked information from PAP unit. PAP unit pressure 5-20, average 11.9 cm H2O. Usage is 100 % for more then 4 hours, average 8.9 hours per night. Leak is 10 l/m, which is in acceptable range. Apnea Hypopnea Index is 1.0, which is normal. MEDICATIONS:1. Alprazolam, 2. Singulair 3. Clozaril 4. []Cymbalta During physical exam: GENERAL: A pleasant patient without any distress. VITAL SIGNS: BP 134/84, HR 99, RR 18, weight 303.8, temperature 97.2, oxygen saturation at room air 95 % . HEENT: PERRLA, EOMI.low position of soft palate, Mallapati 4 . NECK: Supple. No JVD. LUNGS: Clear to percussion and to auscultation. Good air exchange. No wheezing or rhonchi. HEART: S1, S2 regular. ABDOMEN: Soft and nontender. Obese EXTREMITIES: No clubbing or cyanosis. FRONT LINE SUPERVISOR: Awake, alert, and oriented x3. No focal deficit. Impressions: 1. Obstructive sleep apnea-hypopnea syndrome. Patient demonstrated great compliance with treatment, benefiting from treatment. Air filter needs to be replaced 2. Obesity. Patient appears his weight on 13 pounds compared with previous visit. 3. Asthma. 4. Acid reflux. 5. History of sinuses problem. 6. History of borderline blood sugar. 7. History of schizoaffective disorder. 8. History of depression. 9. Back problems. Plan: 1. Continue using PAP equipment every night for the whole night. 2. To change air filter at least 1-2 times per month. 3. PAP unit should stay lower then position of the head. 4. Advised patient to remove all remaining water from humidifier canister daily and make it dry after each usage. Refill canister with fresh distilled water before each usage. 5. Sleep hygiene with regular time in bed for at least 8 hours. 6. Precautions related to driving. No driving if feel any sleepiness. 7. I will maintain prescription for PAP supplies including mask, tube, filters. 8. Follow up visit in 6 months or earlier if patient has any problems. 9. Losing weight. Thank you very much for allowing me to participate in the management of your patient. Lew Jordan MD, PhD, FAASM. Diplomat of [place] Board of Sleep Medicine, Sleep Medicine Board by [place] Board of Internal Medicine [employer] Curator of [facility] [place]
== END ==
LOC: SLEEP 15:39
PROVIDERS: ATTEND Internal Medicine
DX: G47.33 Obstructive sleep apnea (adult) (pediatric) (principal); E66.9 Obesity, unspecified; J45.909 Unspecified asthma, uncomplicated; K21.9 Gastro-esophageal reflux disease without esophagitis; Z87.09 Personal history of other diseases of the respiratory system; F25.9 Schizoaffective disorder, unspecified; F32.A Depression, unspecified; Z86.39 Personal history of other endocrine, nutritional and metabolic disease; M53.80 Other specified dorsopathies, site unspecified; F17.200 Nicotine dependence, unspecified, uncomplicated; Z88.8 Allergy status to other drugs, medicaments and biological substances; Z79.899 Other long term (current) drug therapy

== ENCOUNTER → 2022-12-03 | Outpatient (CLI) | payer BC, OTHER ==
--- NOTE | 2022-12-03 16:45 | P.PN ---
Subjective DATE: 12/03/2022 FOLLOW UP VISIT. Patient with obstructive sleep apnea hypopnea syndrome return to sleep center for follow-up visit. Information from previous visit have been reviewed. Patient is using PAP equipment every night for the whole night, getting PAP supplies in time. The patient does not have significant problems with the mask, PAP unit and humidification. [place] sleepiness scale is, which is perfect. I checked information from PAP unit. PAP unit pressure 5-20 cm H2O. Usage is 100 % for more then 4 hours, average 8.5 hours per night. Leak is 10 l/m, which is in acceptable range. Apnea Hypopnea Index is 0.8, which is normal. MEDICATIONS:1. Cymbalta 2. Eliquis 3. Clozaril 4. Singulair During physical exam: GENERAL: A pleasant patient without any distress. VITAL SIGNS: BP 113/78, HR 99, RR 20 , weight 308, temperature 97.6, oxygen saturation at room air 94 % . HEENT: PERRLA, EOMI.low position of soft palate, Mallapati 4 . NECK: Supple. No JVD. LUNGS: Clear to percussion and to auscultation. Good air exchange. No wheezing or rhonchi. HEART: S1, S2 regular. ABDOMEN: Soft and nontender. Obese EXTREMITIES: No clubbing or cyanosis. POST DOCTORAL FELLOW: Awake, alert, and oriented x3. No focal deficit. Impressions: 1. Obstructive sleep apnea-hypopnea syndrome. Patient demonstrated great compliance with treatment, benefiting from treatment. 2. Obesity, BMI 43.8. 3. History of depression. 4. Asthma. 5. History of sinuses problems. 6. History schizoaffective disorder. 7. History of back problems. 8. History of borderline blood sugar. Plan: 1. Continue using PAP equipment every night for the whole night. 2. To change air filter at least 1-2 times per month. 3. PAP unit should stay lower then position of the head. 4. Advised patient to remove all remaining water from humidifier canister daily and make it dry after each usage. Refill canister with fresh distilled water before each usage. 5. Sleep hygiene with regular time in bed for at least 8 hours. 6. Precautions related to driving. No driving if feel any sleepiness. 7. I will maintain prescription for PAP supplies including mask, tube, filters. 8. Follow up visit in 6 months or earlier if patient has any problems. 9. Watching and losing weight. Thank you very much for allowing me to participate in the management of your patient. Lew Jordan MD, PhD, FAASM. Diplomat of [place] Board of Sleep Medicine, Sleep Medicine Board by [place] Board of Internal Medicine [employer] Consultant of [facility] [place]
== END ==
LOC: 3 N SLEEP 16:00
PROVIDERS: ATTEND Internal Medicine
DX: G47.33 Obstructive sleep apnea (adult) (pediatric) (principal); J45.909 Unspecified asthma, uncomplicated; E66.9 Obesity, unspecified; R73.03 Prediabetes; J34.9 Unspecified disorder of nose and nasal sinuses; F25.9 Schizoaffective disorder, unspecified; F17.200 Nicotine dependence, unspecified, uncomplicated; F32.A Depression, unspecified; Z68.41 Body mass index [BMI] 40.0-44.9, adult; Z87.39 Personal history of other diseases of the musculoskeletal system and connective tissue; Z99.89 Dependence on other enabling machines and devices; Z79.01 Long term (current) use of anticoagulants; Z88.8 Allergy status to other drugs, medicaments and biological substances; Z79.51 Long term (current) use of inhaled steroids
CPT/HCPCS: 99212

== ENCOUNTER → 2023-06-17 | Outpatient (CLI) | payer BC, OTHER ==
[2023-06-17 16:58] VITALS: BP 122/73; PULSE 112; RESP 20; TEMP 98.8
--- NOTE | 2023-06-17 17:22 | P.PN ---
Subjective DATE: 06/17/2023 FOLLOW UP VISIT. Patient with obstructive sleep apnea hypopnea syndrome return to sleep center for follow-up visit. Information from previous visit have been reviewed. Patient is using PAP equipment every night for the whole night, getting PAP supplies in time. The patient does not have significant problems with the mask, PAP unit and humidification. [place] sleepiness scale is, which is perfect 1. I checked information from PAP unit. PAP unit pressure 5-20, average 12.7 cm H2O. Usage is 100% for more then 4 hours, average 8.7 hours per night. Leak is 14 l/m, which is in acceptable range. Apnea Hypopnea Index is 0.8, which is normal. Patient feels that is not enough pressure for him at the moment when he is starting to use machine. MEDICATIONS:1. 150 mg once a day 2. Metformin 3. Eliquis 5 mg once a day 4. Cymbalta During physical exam: GENERAL: A pleasant patient without any distress. VITAL SIGNS: BP 122/73, HR 112, RR 20, weight 309.4, temperature 98.8, oxygen saturation at room air 95% . HEENT: PERRLA, EOMI.low position of soft palate, Mallapati 4 . NECK: Supple. No JVD. LUNGS: Clear to percussion and to auscultation. Good air exchange. No wheezing or rhonchi. HEART: S1, S2 regular. ABDOMEN: Soft and nontender. Obese EXTREMITIES: No clubbing or cyanosis. BATON TWIRLER: Awake, alert, and oriented x3. No focal deficit. I increased lowest pressure to 8 cm of water. Patient tried to use CPAP unit in the office and feels comfortable. Impressions: 1. Obstructive sleep apnea-hypopnea syndrome. Patient demonstrated great compliance with treatment, benefiting from treatment. 2. History of depression. 3. Asthma. 4. Obesity, weight is the same as during previous visit. 5. History of sinus problems. 6. History of schizoaffective disorder. 7. History of back problems. 8. History of borderline blood sugar. Plan: 1. Continue using PAP equipment every night for the whole night. 2. To change air filter at least 1-2 times per month. 3. PAP unit should stay lower then position of the head. 4. Advised patient to remove all remaining water from humidifier canister daily and make it dry after each usage. Refill canister with fresh distilled water before each usage. 5. Sleep hygiene with regular time in bed for at least 8 hours. 6. Precautions related to driving. No driving if feel any sleepiness. 7. I will maintain prescription for PAP supplies including mask, tube, filters. 8. Watching and losing weight. 9. Follow up visit in 6 months or earlier if patient has any problems. Thank you very much for allowing me to participate in the management of your patient. Lew Jordan MD, PhD, FAASM. Diplomat of [place] [employer], Sleep Medicine Board by [place] [employer] Room Clerk of [facility] [place] Objective - Vital Signs Vital signs: Vital Signs Temp 98.8 F 06/17/23 16:41 Pulse 112 H 06/17/23 16:41 Resp 20 06/17/23 16:41 BP 122/73 06/17/23 16:41 Pulse Ox 95 06/17/23 16:41 FiO2 Intake & Output 06/16/23 06/17/23 06/17/23 18:59 06:59 18:59 Weight 140.16 kg
== END ==
LOC: 3 N SLEEP 16:27
PROVIDERS: ATTEND Internal Medicine
DX: G47.33 Obstructive sleep apnea (adult) (pediatric) (principal); F32.A Depression, unspecified; F25.9 Schizoaffective disorder, unspecified; J45.909 Unspecified asthma, uncomplicated; F12.90 Cannabis use, unspecified, uncomplicated; F17.200 Nicotine dependence, unspecified, uncomplicated; E66.9 Obesity, unspecified; Z99.89 Dependence on other enabling machines and devices; Z87.39 Personal history of other diseases of the musculoskeletal system and connective tissue; Z86.39 Personal history of other endocrine, nutritional and metabolic disease; Z79.84 Long term (current) use of oral hypoglycemic drugs; Z68.41 Body mass index [BMI] 40.0-44.9, adult; Z79.51 Long term (current) use of inhaled steroids; Z79.899 Other long term (current) drug therapy
CPT/HCPCS: 99212

== ENCOUNTER → 2023-09-27 | Outpatient (CLI) | payer BC, OTHER ==
--- NOTE | 2023-09-27 20:34 | MR ---
EXAMINATION TYPE: MR lumbar spine wo/w con DATE OF EXAM: 09/27/2023 5:38 PM CLINICAL INDICATION:Male, 47 years old with history of M54.9 DORSALGIA, UNSPECIFIED; PHH, Low back pa in that radiates down legs COMPARISON: None TECHNIQUE: Multi planar, multi sequence imaging was performed utilizing: T1-weighted, T2-weighted, a nd turbo inversion recovery imaging of the lumbar spine. IV Contrast: 14 cc Gadavist. (None if empty) FINDINGS: Alignment: The lumbar vertebral bodies have preserved heights and alignment. Cord: The conus medullaris and the distal spinal cord appear unremarkable with regards to their signa l intensity and morphology. 4. No abnormal postcontrast enhancement. Bones/Discs: Mild degeneration changes throughout the spine with osteophyte formation and facet joint arthropathy. Intervertebral disc signal is maintained.4. No abnormal postcontrast enhancement. T12-L1: No evidence of significant spinal canal stenosis or neural foraminal stenosis. L1-L2: No evidence of significant spinal canal stenosis or neural foraminal stenosis. L2-L3: No evidence of significant spinal canal stenosis or neural foraminal stenosis. L3-L4: No evidence of significant spinal canal stenosis or neural foraminal stenosis. L4-L5: No evidence of significant spinal canal stenosis or neural foraminal stenosis. L5-S1: Right central/foraminal disc bulge which effaces the forming right S1 1 S2 nerve. No significant spinal canal or neural foraminal stenosis in the remainder of the visualized levels. Other findings: None. IMPRESSION: 1. L4-L5 and L5-S1 Right central/foraminal disc bulge which effaces the forming right L5-S1 and S1-S 2 nerves in the thecal sac. 2. No evidence for significant spinal canal stenosis. 3. Mild disc degeneration changes. 4. No abnormal postcontrast enhancement.
== END | disposition home or self-care (01) ==
LOC: RADMRIMAIN 16:43
PROVIDERS: ATTEND Internal Medicine Geriatric Medicine
DX: M51.36 Other intervertebral disc degeneration, lumbar region (principal); M51.37 Other intervertebral disc degeneration, lumbosacral region
CPT/HCPCS: 72158; A9585

== ENCOUNTER → 2024-01-27 | Outpatient (CLI) | payer BC, OTHER ==
[2024-01-27 16:54] VITALS: BP 141/77; PULSE 108; RESP 16; TEMP 97.9
--- NOTE | 2024-01-27 17:22 | P.PROGSL ---
Subjective DATE: 01/27/2024 FOLLOW UP VISIT. Patient with obstructive sleep apnea hypopnea syndrome return to sleep center for follow-up visit. Information from previous visit have been reviewed. Patient is using PAP equipment every night for the whole night, getting PAP supplies in time. The patient does not have significant problems with the mask, PAP unit and humidification. [place] sleepiness scale is 0. I checked information from PAP unit. PAP unit pressure 8-20, average 12.7 cm H2O. Usage is 100% for more then 4 hours, average 9.5 hours per night. Leak is 14 l/m, which is in acceptable range. Apnea Hypopnea Index is 1.0, which is normal. MEDICATIONS have been reviewed, please see below. During physical exam: GENERAL: A pleasant patient without any distress. VITAL SIGNS: Please see below, weight is 328 lbs. HEENT: PERRLA, EOMI.low position of soft palate, Mallapati 4 . NECK: Supple. No JVD. LUNGS: Clear to percussion and to auscultation. Good air exchange. No wheezing or rhonchi. HEART: S1, S2 regular. ABDOMEN: Soft and nontender. Obese EXTREMITIES: No clubbing or cyanosis. ADMIN ASST: Awake, alert, and oriented x3. No focal deficit. Impressions: 1. Obstructive sleep apnea-hypopnea syndrome. Patient demonstrated great compliance with treatment, benefiting from treatment. 2. Obesity, patient increased weight on 9 pounds, BMI 47.0. 3. History of depression. 4. Asthma. 5. History of sinuses problems. 6. History of schizoaffective disorder. 7. History of borderline blood sugar. 8. History of back problems. Plan: 1. Continue using PAP equipment every night for the whole night. 2. Sleep hygiene with regular time in bed for at least 7.5-8 hours 3. PAP unit should stay lower then position of the head. 4. Advised patient to remove all remaining water from humidifier canister daily and make it dry after each usage. Refill canister with fresh distilled water before each usage. 5. Watching and losing weight. 6. Precautions related to driving. No driving if feel any sleepiness. 7. I will maintain prescription for PAP supplies including mask, tube, filters. 8. Follow up visit in 6 months or earlier if patient has any problems. Thank you very much for allowing me to participate in the management of your patient. Lew Stefadu, MD, PhD, FAASM. Diplomat of [place] [employer], Sleep Medicine Board by [place] [employer] Reconciler of [facility] [place] Objective - Vital Signs Vital Signs: Vital Signs Temp 97.9 F 01/27/24 16:53 Pulse 108 H 01/27/24 16:53 Resp 16 01/27/24 16:53 BP 141/77 01/27/24 16:53 Pulse Ox 95 01/27/24 16:53 FiO2 Home Medications: Home Medications Medication Instructions Recorded Confirmed Type cloZAPine [Clozaril] 100 mg PO HS 04/29/14 06/17/23 History Apixaban [Eliquis] 5 mg PO BID 02/23/18 06/17/23 History Budesonide [Pulmicort Flexhaler] 2 puff INHALATION RT-BID PRN 02/23/18 06/17/23 History DULoxetine HCL [Cymbalta] 60 mg PO DAILY 02/23/18 06/17/23 History Montelukast [Singulair] 10 mg PO HS 02/23/18 06/17/23 History Ipratropium-Albuterol Nebulize 3 ml INHALATION RT-Q4H PRN 02/27/18 06/17/23 Rx [Duoneb 0.5 mg-3 mg/3 ml Soln] ampul.neb Ipratropium-Albuterol Nebulize 3 ml INHALATION RT-QID ampul.neb 02/27/18 Rx [Duoneb 0.5 mg-3 mg/3 ml Soln] Baclofen 5 mg PO ONCE 06/17/23 06/17/23 History metFORMIN HCL 1,000 mg PO ONCE 06/17/23 06/17/23 History
== END ==
LOC: 3 N SLEEP 16:36
PROVIDERS: ATTEND Internal Medicine
CPT/HCPCS: 99212

== ENCOUNTER → 2024-10-12 | Outpatient (CLI) | payer BC, OTHER ==
[2024-10-12 16:52] VITALS: BP 118/76; PULSE 102; RESP 20; TEMP 97.4
--- NOTE | 2024-10-12 17:09 | P.PROGSL ---
Subjective DATE: 10/12/2024 FOLLOW UP VISIT. Patient with obstructive sleep apnea hypopnea syndrome return to sleep center for follow-up visit. Information from previous visit have been reviewed. Patient is using PAP equipment every night for the whole night, getting PAP supplies in time. The patient does not have significant problems with the mask, PAP unit and humidification. [place] sleepiness scale is 0. I checked information from PAP unit. PAP unit pressure 5-20, average 10.6 cm H2O. Usage is 100% for more then 4 hours, average 9.8 hours per night. Leak is 13 l/m, which is in acceptable range. Apnea Hypopnea Index is 0.4, which is normal. MEDICATIONS have been reviewed, please see below. Tachycardia During physical exam: GENERAL: A pleasant patient without any distress. VITAL SIGNS: Please see below, weight is 304 lbs. HEENT: PERRLA, EOMI.low position of soft palate, Mallapati 4 . NECK: Supple. No JVD. LUNGS: Clear to percussion and to auscultation. Good air exchange. No wheezing or rhonchi. HEART: S1, S2 regular, tachycardia. ABDOMEN: Soft and nontender. Obese EXTREMITIES: No clubbing or cyanosis. PEST CONTROL CHEMICAL TECHNICIAN: Awake, alert, and oriented x3. No focal deficit. Impressions: 1. Obstructive sleep apnea-hypopnea syndrome. Patient demonstrated great compliance with treatment, benefiting from treatment. 2. Obesity, BMI 43.6, patient lost 24 pounds comparing with previous visit. 3. Asthma. 4. History of depression. 5. History of schizoaffective disorder. 6. History of borderline blood sugar. 7. History of back problems. 8. History of sinus problems. Plan: 1. Continue using PAP equipment every night for the whole night. 2. Sleep hygiene with regular time in bed for at least 7.5-8 hours 3. PAP unit should stay lower then position of the head. 4. Advised patient to remove all remaining water from humidifier canister daily and make it dry after each usage. Refill canister with fresh distilled water before each usage. 5. Watching weight. 6. Precautions related to driving. No driving if feel any sleepiness. 7. I will maintain prescription for PAP supplies including mask, tube, filters. 8. Follow up visit in 8 months or earlier if patient has any problems. Thank you very much for allowing me to participate in the management of your patient. Lew Jordan MD, PhD, FAASM. Diplomat of [place] [employer], Sleep Medicine Board by [employer] Hardware Sales Assistant of [facility] [place] Objective - Vital Signs Vital Signs: Vital Signs Temp 97.4 F L 10/12/24 16:50 Pulse 102 H 10/12/24 16:50 Resp 20 10/12/24 16:50 BP 118/76 10/12/24 16:50 Pulse Ox 96 10/12/24 16:50 FiO2 Intake & Output 10/11/24 10/12/24 10/12/24 18:59 06:59 18:59 Weight 137.892 kg Home Medications: Home Medications Medication Instructions Recorded Confirmed Type cloZAPine [Clozaril] 100 mg PO HS 04/29/14 10/12/24 History Apixaban [Eliquis] 5 mg PO BID 02/23/18 10/12/24 History Budesonide [Pulmicort Flexhaler] 2 puff INHALATION RT-BID PRN 02/23/18 10/12/24 History DULoxetine HCL [Cymbalta] 60 mg PO DAILY 02/23/18 10/12/24 History Montelukast [Singulair] 10 mg PO HS 02/23/18 10/12/24 History Ipratropium-Albuterol Nebulize 3 ml INHALATION RT-Q4H PRN 02/27/18 10/12/24 Rx [Duoneb 0.5 mg-3 mg/3 ml Soln] ampul.neb Ipratropium-Albuterol Nebulize 3 ml INHALATION RT-QID ampul.neb 02/27/18 Rx [Duoneb 0.5 mg-3 mg/3 ml Soln] Baclofen 5 mg PO ONCE 06/17/23 10/12/24 History metFORMIN HCL 1,000 mg PO ONCE 06/17/23 10/12/24 History
== END ==
LOC: 3 N SLEEP 16:20
PROVIDERS: ATTEND Internal Medicine
DX: G47.33 Obstructive sleep apnea (adult) (pediatric) (principal); J45.909 Unspecified asthma, uncomplicated; E66.9 Obesity, unspecified; F12.90 Cannabis use, unspecified, uncomplicated; F17.200 Nicotine dependence, unspecified, uncomplicated; Z68.41 Body mass index [BMI] 40.0-44.9, adult; Z86.59 Personal history of other mental and behavioral disorders; Z86.39 Personal history of other endocrine, nutritional and metabolic disease; Z87.39 Personal history of other diseases of the musculoskeletal system and connective tissue; Z87.09 Personal history of other diseases of the respiratory system; Z99.89 Dependence on other enabling machines and devices; Z88.8 Allergy status to other drugs, medicaments and biological substances
CPT/HCPCS: 99212